=== PATIENT | male | born 1960 | race Caucasian/White ===

== ENCOUNTER 2017-02-16 11:58 | Inpatient (IN) | payer OTHER ==
[~2017-02-16] VITALS: Ht 167.6 cm; Wt 83.2 kg
[~2017-02-16 11:58] MED LIST: ABILIFY 10 MG10 MG PO; ABILIFY 5MG5 MG PO; ATORVASTATIN CA10 M1 PO; CELEXA40 MG PO; EFFEXOR-XR150 MG PO; EFFEXOR-XR75 MG PO; FLU VACCINE 0.0.5 ML IM; HARVONI1 TAB PO; LEXAPRO 20MG M20 MG PO; LITHIUM CARBON300 M3 PO; LITHIUM CARBON300 M6 PO; LITHIUM CARBON450 M1 PO; LITHIUM CARBON600 MG PO; MIRTAZAPINE15 M2 PO; MULTIPLE VITAM1 EAC2 PO; NEURONTIN300 MG PO; OLANZAPINE PO; OLANZAPINE10 M1 PO; OLANZAPINE2.5 MG PO; OLANZAPINE5 MG PO; SIMVASTATIN20 MG PO; TEGRETOL200 M1 PO; TRAZODONE HCL100 MG PO; TRAZODONE HCL150 M1 PO; TRAZODONE150 MG PO; VENLAFAXINE HC150 MG PO; VENLAFAXINE HCL75 M1 PO; VENLAFAXINE225 MG PO; [UNRECOGNIZED DRUG - OTHER] PO
--- NOTE | 2017-02-16 12:12 | NUR ---
PT HAS ONE (1) BELONGINGS BAG LOCKED IN CLOSET AND (1) ONE VALUABLES BAG GIVEN TO POD 2 NURSE
--- NOTE | 2017-02-16 12:21 | NUR ---
56 YO MALE BIBA FROM [facility] WITH INCREASED SI. STATES ONGOING DEPRESSION X 8 YEARS WITH BOUTS OF SI. PER PT THERE HAS BEEN NO RECENT EXACERBATING FACTOR LEADING TO THIS EVENT. STATES HE FEELS THOUGH "MEDS STOP WORKING". DENIES ACTIVE PLAN, HOWEVER STATES HE KNOWS HE WOULD HANG HIMSELF WHEN AT HIS WORST. PT CHANGED INTO BLUE SCRUBS, VS TAKEN, SECURITY CALLED AND PT WANDED PER PROTOCOL, BELONGINGS DOCUMENTED.
--- NOTE | 2017-02-16 12:24 | ED PSY CRISIS COLLATERAL NOTE ---
Collateral Note Collateral Note Family/Inform/Naz Contacts: Pt's out pt prescriber Camilla JOVITA called to inform that pt was sent to the ED due to severe Depression with SI and plan to hang himself. Pt has prior suicide attempts and inpt psych tx. Today was his first day at [facility]. He was referred to [facility] by his outpt therapist Mirtha Carrillo. Camilla informed that pt was not able to identify any protective factors. He has 2 brothers that completed suicide. A friend of his recently . Pt has also been down on himself because he feels too out of shape to work. He used to be a very hard worker and has been out of work for 2 years. Camilla is very worried for pt's safety and recommends inpt psych tx.
--- NOTE | 2017-02-16 14:44 | NUR ---
DR GALLARDO WITH PATIENT
[2017-02-16 15:06] LABS: ABSOLUTE BASOPHIL COUNT 0.1 /CUMM (0.0-0.2); ABSOLUTE EOSINOPHIL COUNT 0.2 /CUMM (0.0-0.7); ABSOLUTE GRANULOCYTE CT 7.5 /CUMM (1.4-6.5); ABSOLUTE LYMPH COUNT 2.9 /CUMM (1.2-3.4); ABSOLUTE MONOCYTE COUNT 0.5 /CUMM (0.10-0.60); BASOPHIL % 0.9 % (0.0-2.0); HEMATOCRIT 50.5 % (42-52); MEAN CORPUSCULAR HGB 31.3 PG (27.0-31.0); MEAN CORPUSCULAR HGB CONC 33.4 G/DL (33.0-37.0); MEAN CORPUSCULAR VOLUME 93.8 FL (80.0-94.0); MEAN PLATELET VOLUME 7.4 FL (7.4-10.4); PLATELET COUNT 290 /CUMM (130-400); RBC DISTRIBUTION WIDTH 13.8 % (11.5-14.5); RED BLOOD CELL CT 5.38 /CUMM (4.70-6.10); WHITE BLOOD CELL COUNT 11.2 /CUMM (4.8-10.8)
--- NOTE | 2017-02-16 15:10 | ED PSYCHIATRIC COMPLAINT ---
History of Present Illness General Chief Complaint: Psychiatric Related Complaint Stated Complaint: SENT BY [facility] FOR SI Source: patient, old records Exam Limitations: no limitations Allergies Coded Allergies: NO KNOWN ALLERGIES (05/15/15) Reconcile Medications Atorvastatin Calcium 10 MG TABLET 1 TAB PO QPM CHOLESTEROL (Reported) Bupropion HCl (Wellbutrin XL) 150 MG TAB.ER.24H 150 MG PO DAILY DEPRESSION ( Reported) Carbamazepine (Tegretol) (Unknown Strength) TABLET (Unknown Dose) PO BID UNKNOWN (Reported) [place] Carbonate ([place] Carbonate ER) 300 MG TABLET.ER 2 TAB PO QPM MENTAL HEALTH (Reported) [place] Carbonate ([place] Carbonate ER) 450 MG TABLET.ER 1 TAB PO DAILY MENTAL HEALTH (Reported) Mirtazapine 15 MG TABLET 1 TAB PO QPM SLEEP (Reported) Multivitamin (Multiple Vitamins) 1 EACH TABLET 1 TAB PO DAILY VITAMIN SUPPORT (Reported) Olanzapine 10 MG TABLET 1 TAB PO QPM SLEEP (Reported) Trazodone HCl 150 MG TABLET 1 TAB PO QPM SLEEP (Reported) Venlafaxine HCl (Venlafaxine HCl ER) 150 MG CAP.ER.24H 1 CAP PO DAILY MENTAL HEALTH (Reported) Venlafaxine HCl (Venlafaxine HCl ER) 75 MG CAP.ER.24H 1 CAP PO QPM MENTAL HEALTH (Reported) Triage Note: 56 YO MALE BIBA FROM [facility] WITH INCREASED SI. STATES ONGOING DEPRESSION X 8 YEARS WITH BOUTS OF SI. PER PT THERE HAS BEEN NO RECENT EXACERBATING FACTOR LEADING TO THIS EVENT. STATES HE FEELS THOUGH "MEDS STOP WORKING". DENIES ACTIVE PLAN, HOWEVER STATES HE KNOWS HE WOULD HANG HIMSELF WHEN AT HIS WORST. PT CHANGED INTO BLUE SCRUBS, VS TAKEN, SECURITY CALLED AND PT WANDED PER PROTOCOL, BELONGINGS DOCUMENTED. Triage Nurses Notes Reviewed? yes HPI: Mr. Pringle was seen and examined this afternoon. He is resting comfortably in the bed. He was sent in this morning after stating that he continues to be extremely suicidal at his [facility] appointment this morning. The patient states that he feels hopeless and feels that medications are no longer effective. He states that multiple trials with various antipsychotics have proven to be ineffective and currently finds that his symptoms are uncontrollable. He states that he has previously been admitted to Inpatient Psychiatry and requested to be admitted again. He denies any fever, chills, nausea, vomiting. He endorses occasional shortness of breath and chest pain although is currently not expressing any chest pain at this moment. He does endorse good medication compliance, and took his medications this morning. (MICHAEL GALLARDO MD) Vital Signs & Intake/Output Vital Signs & Intake/Output Vital Signs Date Time Temp Pulse Resp B/P B/P Pulse O2 O2 Flow FiO2 Mean Ox Delivery Rate 02/17 0739 96.5 63 125/78 02/16 2145 96.3 69 138/78 02/16 2040 98.1 64 18 134/89 95 02/16 1921 98.2 60 136/94 94 02/16 1407 98.0 84 18 148/80 97 Room Air 02/16 1326 Room Air 02/16 1211 98.2 88 18 152/88 97 Room Air ED Intake and Output 02/17 0000 02/16 1200 Intake Total 480 Output Total Balance 480 Intake, Oral 480 Patient 83.234 kg Weight Weight Reported by Patient Measurement Method Past History Travel History Traveled to [place] past 21 day No Medical History Any Pertinent Medical History? 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 Yes (LEONILA JACOBO MD) Review of Systems Review of Systems Constitutional: Reports: see HPI. (MICHAEL GALLARDO MD) Review of Systems Constitutional: Reports: no symptoms. EENTM: Reports: no symptoms. Respiratory: Reports: no symptoms. Cardiovascular: Reports: no symptoms. GI: Reports: no symptoms. Genitourinary: Reports: no symptoms. Musculoskeletal: Reports: no symptoms. Skin: Reports: no symptoms. Neurological/Psychological: Reports: see HPI, confusion, depressed. Hematologic/Endocrine: Reports: no symptoms. Immunologic/Allergic: Reports: no symptoms. All Other Systems: Reviewed and Negative (LEONILA JACOBO MD) Physical Exam Physical Exam General Appearance: well developed/nourished, no apparent distress, alert, awake , comfortable Neck: normal inspection, supple Respiratory: normal breath sounds, chest non-tender Cardiovascular: regular rate/rhythm Gastrointestinal: normal bowel sounds, soft, non-tender Neurological/Psychiatric: no motor/sensory deficits, awake, oriented x 3, Appears Withdrawn. Appearance/Memory/Insight: appropriate appearance, appropriate insight Behavoir/Eye Contact/Speech: cooperative, good eye contact SAD PERSONS SAD PERSONS Response Value Male Sex? yes 1 Age <19 or >45 years? yes 1 Depression/Hopelessness? yes 2 Previous Attempts/Psych Care yes 1 Single//? yes 1 Social Support? has support 0 Stated Future Intent? yes 2 Total 8 (PAULINA QUINTERO,[facility]) Physical Exam General Appearance: well developed/nourished, mild distress Head: atraumatic Eyes: Bilateral: PERRL, EOMI. Ears, Nose, Throat: normal pharynx, normal ENT inspection, hearing grossly normal Neck: normal inspection, supple Respiratory: normal breath sounds Cardiovascular: regular rate/rhythm Gastrointestinal: soft, non-tender Extremities: normal range of motion Thoughts/Hallucinations: no apparent hallucination Skin: intact, normal color, warm/dry SAD PERSONS Done? yes (LEONILA JACOBO MD) Progress Differential Diagnosis: drug intoxication, drug overdose, drug withdrawal, electrolyte abnormality, hypoglycemia Plan of Care: Orders Procedure Date/time Status Regular Diet 02/17 B Active Vital Signs 02/16 2149 Active Inpt Psych Teach/Educate 02/16 2149 Active Nutritional Intake, Monitor 02/16 2149 Active Inpt Psych Auricular Acupunctu 02/16 2149 Active EKG 02/16 1925 Active Lab Add-on Test 02/16 192 Active Patient Data - inpatient psych 02/16 1916 Active Admit to inpatient psych 02/16 1916 Active Add-on Test (ER Only) 02/16 1719 Active Add-on Test (ER Only) 02/16 1707 Active Add-on Test (ER Only) 02/16 1700 Active URINE DRUGS OF ABUSE 02/16 1512 Complete ED CRISIS PSYCH CONSULT 02/16 1505 Active TSH REFLEX 02/16 1501 Complete LITHIUM 02/16 1501 Complete ETHANOL 02/16 1501 Complete URINALYSIS 02/16 1450 Complete COMPREHENSIVE METABOLIC PANEL 02/16 1450 Complete CBC WITHOUT DIFFERENTIAL 02/16 1450 Complete Intake & Output 02/16 1400 Complete Vital Signs 02/16 UNK Active Nursing Misc 02/16 UNK Active Alternative Nursing Therapy 02/16 UNK Active Activity/Ambulation 02/16 UNK Active Current Medications Sig/Ester Start time Last Medication Dose Stop Time Status Admin [place] Carbonate 600 MG DAILY@02/17 2000 AC (Lithobid Slow Release) Atorvastatin Calcium 10 MG 1700 02/17 1700 AC (Lipitor) Multivitamins 1 TAB DAILY 02/17 1000 AC (Theragran Vitamins) Bupropion HCl 150 MG 0802/17 0800 AC (Wellbutrin XL) [place] Carbonate 450 MG DAILY@0802/17 0800 AC (Eskalith Cr) Venlafaxine HCl 150 MG 02/17 0800 AC (Effexor Xr) Fish Oil 1,050 MG BID 02/16 2200 AC 02/16 ([place]-3) 232 Olanzapine 10 MG AT BEDTIME 02/16 2200 AC 02/16 (Zyprexa) 232 Trazodone HCl 150 MG AT BEDTIME 02/16 2200 AC 02/16 (Desyrel) 232 Venlafaxine HCl 75 MG AT BEDTIME 02/16 2200 AC 02/16 (Effexor Xr) 232 Acetaminophen 650 MG Q6P PRN 02/16 1930 AC (Tylenol) Al Hydroxide/Mg 30 ML Q4-6 PRN PRN 02/16 1930 AC Hydroxide (Maalox Plus) Gabapentin 300 MG Q4P PRN 02/16 1930 AC (Neurontin) Magnesium Hydroxide 30 ML AT BEDTIME PRN 02/16 1930 AC (Milk Of Magnesia) Trazodone HCl 50 MG AT BEDTIME NEED.. 02/16 1930 CAN (Desyrel) Laboratory Tests 02/16/17 1512: Urine Opiates Screen < 100.00, Methadone Screen 42, Barbiturate Screen < 60, Ur Phencyclidine Scrn < 6.00, Amphetamines Screen 182, U Benzodiazepines Scrn < 85, Urine Cocaine Screen < 50, Urine Cannabis Screen > 80.00 H 02/16/17 1511: Urine Color Cancelled, Urine Clarity Cancelled, Urine pH Cancelled, Ur Specific [place] Cancelled, Urine Protein Cancelled, Urine Ketones Cancelled, Urine Nitrite Cancelled, Urine Bilirubin Cancelled, Urine Urobilinogen Cancelled, Ur Leukocyte Esterase Cancelled, Ur Microscopic Cancelled, Urine Hemoglobin Cancelled, Urine Glucose Cancelled 02/16/17 1511: Serum Alcohol Cancelled, Urine Color YEL, Urine Clarity CLEAR, Urine pH 6.0, Ur Specific [place] 1.015, Urine Protein 30 H, Urine Ketones NEG, Urine Nitrite NEG, Urine Bilirubin NEG, Urine Urobilinogen 0.2, Ur Leukocyte Esterase NEG, Ur Microscopic SEDIMENT EXAMINED, Urine WBC 1-3 H, Ur Epithelial Cells FEW, Urine Mucus FEW, Urine Hemoglobin NEG, Urine Glucose NEG 02/16/17 1501: Anion Gap 14, Estimated GFR > 60, BUN/Creatinine Ratio 9.0, Glucose 92, Calcium 10.0, Total Bilirubin 0.9, AST 18, ALT 30, Alkaline Phosphatase 102, Total Protein 8.3 H, Albumin 4.9, Globulin 3.4, Albumin/Globulin Ratio 1.4, TSH &T3 & Free T4 Intrp 1.810, CBC w Diff NO MAN DIFF REQ, RBC 5.38, MCV 93.8, MCH 31.3 H , RDW 13.8, MPV 7.4, Gran % 67.0, Lymphocytes % 25.5, Monocytes % 4.6, Eosinophils % 2.0, Basophils % 0.9, Absolute Granulocytes 7.5 H, Absolute Lymphocytes 2.9, Absolute Monocytes 0.5, Absolute Eosinophils 0.2, Absolute Basophils 0.1, PUBS MCHC 33.4, [place] 1.2, Serum Alcohol < 10.0 Departure Departure Condition: Stable Referrals: ROBERT MYLES MD (PCP/Family) Departure Forms: Customer Survey General Discharge Information (PAULINA QUINTERO,MICHAEL) Departure Time of Disposition: 1899 Disposition: STILL A PATIENT Clinical Impression Primary Impression: Depression with suicidal ideation Secondary Impressions: Suicidal intent Resident Co-Sign Statement Statement: ED Attending supervision documentation- x I saw and evaluated the patient. I have also reviewed all the pertinent lab results and diagnostic results. I agree with the findings and the plan of care as documented in the Resident's documentation. I have reviewed the ED Record and agree with the Resident's documentation. [] Additions or exceptions (if any) to the Resident's note and plan are summarized below: [] (ODALIS QUINTERO,LEONILA)
--- NOTE | 2017-02-16 17:17 | NUR ---
PT SEEN IN [place]. VERBALIZED UNHAPPINESS THAT "NO ACTION" HAS HAPPENED. WANTS TO SIGN HIMSELF OUT. DR FISHER INFORMED.
--- NOTE | 2017-02-16 18:33 | ED PSYCH CRISIS CONSULTATION ---
Crisis Consult Basic Assessment Date of Consult: 02/16/17 Responsible Person/Accompanied By: self/biba Insurance Authorization: Insurance #1: Insurance name: LOUIE BIRD Phone number: Policy number: [id number] Group number: Authorization number: ED Provider: Patient's ED Provider: MICHAEL GALLARDO MD Primary Care Physician: Patient's PCP: SHAR QUINTERO,ROBERT PCP's Current Psychiatrist: jaimee powell APRN Chief Complaint: Psychiatric Related Complaint Patient's Quote: I'm battling for my life Present Illness: Pt is a 56 yo male biba from [facility] after making suicidal statement. Pt has a diagnosis of Major Depression and stated today that he has a plan to hang himself. Pt has been inpatient at [place] [address] since 2013 for positive SI and has been consistently involved with [facility] since 2013. Pt has a long hx of ETOH abuse and reports maintaining sobriety past 2+ yrs. Pt reports 2 brothers have committed suicide and he is worried his mother can't handle another son killing himself. Pt reports hopelessness that medications aren't helping and he is more depressed and easily agitated. Pt appears depressed, somewhat agitated, alert and OX3. Pt wnats to be admitted in order for medications to be re-evaluated. Patient's Address: [address] [place] [address] Other Phone Number: Who Do You Live With? Family (son and his family) Family/Informants Interviewed: [facility] clinician provided collateral. See note Allergies - Coded Allergies: NO KNOWN ALLERGIES (05/15/15) Current Medications - Scheduled Medications Atorvastatin Calcium 10 MG TABLET 1 TAB PO QPM CHOLESTEROL #30 (Reported) Entered as Reported by ZACK DESAI on 09/02/16 1239 Carbamazepine (Tegretol) (Unknown Strength) TABLET (Unknown Dose) PO BID UNKNOWN (Reported) Entered as Reported by ARIANA BUTLER on 11/02/15 1707 [place] Carbonate ([place] Carbonate ER) 300 MG TABLET.ER 2 TAB PO QPM MENTAL HEALTH #60 (Reported) Entered as Reported by ZACK DESAI on 09/02/16 1237 [place] Carbonate ([place] Carbonate ER) 450 MG TABLET.ER 1 TAB PO DAILY MENTAL HEALTH #30 (Reported) Entered as Reported by ZACK DESAI on 09/02/16 1237 Mirtazapine 15 MG TABLET 1 TAB PO QPM SLEEP #30 (Reported) Entered as Reported by ZACK DESAI on 09/02/16 1236 Multivitamin (Multiple Vitamins) 1 EACH TABLET 1 TAB PO DAILY VITAMIN SUPPORT (Reported) Entered as Reported by ARIANA BUTLER on 08/01/14 1743 Olanzapine 10 MG TABLET 1 TAB PO QPM SLEEP #30 (Reported) Entered as Reported by ZACK DESAI on 09/02/16 1236 Trazodone HCl 150 MG TABLET 1 TAB PO QPM SLEEP (Reported) Entered as Reported by ARIANA BUTLER on 01/28/15 1739 Venlafaxine HCl (Venlafaxine HCl ER) 150 MG CAP.ER.24H 1 CAP PO DAILY MENTAL HEALTH #30 (Reported) Entered as Reported by ZACK DESAI on 09/02/16 1238 Venlafaxine HCl (Venlafaxine HCl ER) 75 MG CAP.ER.24H 1 CAP PO QPM MENTAL HEALTH #30 (Reported) Entered as Reported by ZACK DESAI on 09/02/16 1238 Laboratory Results: Laboratory Tests 02/16/17 1512: Urine Opiates Screen < 100.00, Methadone Screen 42, Barbiturate Screen < 60, Ur Phencyclidine Scrn < 6.00, Amphetamines Screen 182, U Benzodiazepines Scrn < 85, Urine Cocaine Screen < 50, Urine Cannabis Screen > 80.00 H 02/16/17 1511: Serum Alcohol Cancelled, Urine Color YEL, Urine Clarity CLEAR, Urine pH 6.0, Ur Specific [place] 1.015, Urine Protein 30 H, Urine Ketones NEG, Urine Nitrite NEG, Urine Bilirubin NEG, Urine Urobilinogen 0.2, Ur Leukocyte Esterase NEG, Ur Microscopic SEDIMENT EXAMINED, Urine WBC 1-3 H, Ur Epithelial Cells FEW, Urine Mucus FEW, Urine Hemoglobin NEG, Urine Glucose NEG 02/16/17 1501: Anion Gap 14, Estimated GFR > 60, BUN/Creatinine Ratio 9.0, Glucose 92, Calcium 10.0, Total Bilirubin 0.9, AST 18, ALT 30, Alkaline Phosphatase 102, Total Protein 8.3 H, Albumin 4.9, Globulin 3.4, Albumin/Globulin Ratio 1.4, CBC w Diff NO MAN DIFF REQ, RBC 5.38, MCV 93.8, MCH 31.3 H, RDW 13.8, MPV 7.4, Gran % 67.0, Lymphocytes % 25.5, Monocytes % 4.6, Eosinophils % 2.0, Basophils % 0.9, Absolute Granulocytes 7.5 H, Absolute Lymphocytes 2.9, Absolute Monocytes 0.5, Absolute Eosinophils 0.2, Absolute Basophils 0.1, PUBS MCHC 33.4, Serum Alcohol < 10.0 Past History Past Medical History Neurological: NONE EENT: NONE Cardiovascular: hypertension, hyperlipidemia Respiratory: COPD Gastrointestinal: GERD Hepatic: hepatitis C Renal: NONE Musculoskeletal: NONE Psychiatric: anxiety, depression, insomnia Endocrine: NONE Blood Disorders: NONE Cancer(s): NONE 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 Pt is connected to treatment at this time. Pt has a supportive family. He has maintained sobriety past 2.5 yrs Physical Limitations (Interventions): None identified. Psychiatric Treatment History Psych Treatment Psychiatric Treatment Yes Inpatient Treatment Yes Outpatient Treatment Yes Location of Treatment [facility]; IOP and OP Reason for Treatment +SI Dates of Treatment [facility] X[facility] since 2013 (last Nov 2015) [place] OP/IOP current since 2013 Response to Treatment Major depression/+SI Diagnosis by History: Major Depression, PTSD alcohol abuse cannabis abuse Substance Use/Abuse History Drug Use/Abuse 1 Substances Used/Abused Yes Substance Used/Abused Alcohol Last Used 2.5 yrs ago Drug Use/Abuse 2 Substances Used/Abused Yes Substance Used/Abused Marijuana How often occasional Substance Abuse Treatment Substance Abuse Treatment Past Substance Abuse TX Yes Inpatient Treatment Yes Outpatient Treatment Yes Location of Treatment [facility] 30 yrs ago Reason for Treatment etoh abuse Comments: pt reports no etoh use past 2+ yrs. he admits to occasional cannabis use. Current Mental Status Mental Status Orientation: Person, Place, Situation Affect: Angry, Depressed, Hopeless Speech: WNL Neuro-vegetative: Anhedonia, Appetite Decreased, Energy Decreased, Helpless, Loss of Interest, Sleep Disturbance Appearance Appearance- Dress/Hygiene: hospital scrubs; crew cut; initially irritable but more relaxed once needs were being addressed. Sitting up at end of bed. appears depressed. Behaviors Thought Process: WNL Thought Content: WNL Memory: WNL Insight: Fair SI/HI Risk Assessment Past Suicidal Ideation/Attempts Yes Current Suicidal Ideation/Att Yes Past Homicidal Ideation/Att: No Current Homicidal Ideation/Attempts No (easily agitated by others) Degree of Intent: Plan, States Intent Danger To: Self Risk Factors: high anxiety/distress, history of suicide atmpts, SA/MH hospitalized, substance abuse, male Lethality Ratin PTSD Checklist PTSD Done? patient declined ED Management Sitter: Yes Restraints: No DSM5/PS Stressors/Medical Prob Diagnosis' (DSM 5, Stressors, Medical): Major Depressive D/O recurrent severe (F32.2) Cannabis Use D/O moderate (F12.20) 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 States he's been compliant with therapy, medications, abstaining from etoh and going to AA past 2 yrs and he is feeling more depressed. Departure Disposition Psych Medical Clearance Date: 02/16/17 Medically Cleared at: 1830 Time Started: 1834 Time Ended: 1914 Psychiatrist Consulted: Jesus Alvarez MD Disposition Established: 02/16/17 Time Disposition Established: 1919 Plan for Disposition - Modality: Inpatient Psychiatry Facility: [facility] Rationale for Disposition: Pt meets criteria for inpatient admission. Positve SI with plan to hang himself Type of IP Admission: Voluntary Referrals ROBERT MYLES MD (PCP/Family)
[2017-02-16 19:40] LABS: LITHIUM 1.2 mmol/L (0.6-1.2)
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
--- NOTE | 2017-02-16 21:09 | NUR ---
REPORT TO ROSEMARY VAZQUEZ IN [facility]
[2017-02-16 21:45] VITALS: BP 138/78
[2017-02-16] MEDS ORDERED: WELLBUTRIN XL150 M2 PO (22:24)
--- NOTE | 2017-02-16 23:36 | NUR ---
PT ADMITTED TO [facility] FOR EXACERBATION IN DEPRESSION WITH SI. PT REPORTS PASSIVE SI. HE DENIED PLAN OR INTENT. HE AGREED TO TELL STAFF IF ACTIVE SI OCCURS. DEPRESSION "9.9" ON SCALE OF 1-10 WITH 10 BEING THE WORST AND ANXIETY "4." PT DENIED HI AND ALL HALLUCINATIONS. THOUGHT PROCESS CLEAR AND LOGICAL. PT REPORED BEING CLEAN FROM "HARD DRUGS" FOR OVER 20 YEARS. HE ALSO REPORTED BEING SOBER FROM ALCOHOL 2.5 YEARS. HE ADMITTED TO SMOKING MARIJUANA 3 DAYS AGO BUT SAID SMOKING MARIJUANA IS INFREQUENT. AFFECT CONSTRICTED. BEHAVIOR PLEASANT AND COOPERATIVE. NO SOMATIC C/O. MEDICAL HX INCLUDES COPD (NO TX)/CIGARETTE SMOKER, HEP C, HTN, HYPERLIPIDEMIA.
[2017-02-17 07:39] VITALS: BP 125/78
--- NOTE | 2017-02-17 08:46 | SOCIAL WORKER PROG NOTE PSYCH ---
Social Work Progress Note Progress Note Mt with Mike today/ He reports being very depressed, doesn't know if he can go on like this - "I wouldn't wish this depression on anyone." Mike stated he is living with his 36yo son, Mike [id number] and his 2-1/2yo grandson , BETO Mckeon. Mike smiled and lit up when he spoke about his grandson. He stated he wakes up every day to his grandson. He is planning to move (with his son and his family) to somewhere else. "We are going to stay together." Mike stated stressors, are difficulty finding a job, has no license yet - "motor vehicle is giving me a hard time." He has another DMV driving test sometime in March. Mike stated coni has negative thoughts running through his head - he can' t stop it. He is willing to have a meeting with his son, Mike - needs to get his phone number. He doesn't want his sister, Ingrid involved. He is leading an AA meeting 1x per week, has remained sober from alcohol. Positive for cannibis.
--- NOTE | 2017-02-17 12:12 | History & Physical ---
General Information and HPI MD Statement: I have seen and personally examined JUSTIN STARR and documented this H&P. The patient is a 56 year old M who presented with a patient stated chief complaint of Sent by IOP or suicidal ideations]. Source of Information: patient, old records Exam Limitations: no limitations History of Present Illness: 56-year-old white male ongoing depression for at least 8 years several admissions to the hospital bouts of suicidal ideations. Patient thinks his medications are not working denies any problems to aggravate her depression but he feels hopeless. He hasn't had any alcohol for the last 2 years. He wants to be admitted to assess the medications and try to feel better. Allergies/Medications Allergies: Coded Allergies: NO KNOWN ALLERGIES (05/15/15) Home Med list Atorvastatin Calcium 10 MG TABLET 1 TAB PO QPM CHOLESTEROL (Reported) Bupropion HCl (Wellbutrin XL) 150 MG TAB.ER.24H 150 MG PO DAILY DEPRESSION ( Reported) Carbamazepine (Tegretol) (Unknown Strength) TABLET (Unknown Dose) PO BID UNKNOWN (Reported) [place] Carbonate ([place] Carbonate ER) 300 MG TABLET.ER 2 TAB PO QPM MENTAL HEALTH (Reported) [place] Carbonate ([place] Carbonate ER) 450 MG TABLET.ER 1 TAB PO DAILY MENTAL HEALTH (Reported) Mirtazapine 15 MG TABLET 1 TAB PO QPM SLEEP (Reported) Multivitamin (Multiple Vitamins) 1 EACH TABLET 1 TAB PO DAILY VITAMIN SUPPORT (Reported) Olanzapine 10 MG TABLET 1 TAB PO QPM SLEEP (Reported) Trazodone HCl 150 MG TABLET 1 TAB PO QPM SLEEP (Reported) Venlafaxine HCl (Venlafaxine HCl ER) 150 MG CAP.ER.24H 1 CAP PO DAILY MENTAL HEALTH (Reported) Venlafaxine HCl (Venlafaxine HCl ER) 75 MG CAP.ER.24H 1 CAP PO QPM MENTAL HEALTH (Reported) Compliance With Home Meds: GOOD Past History Travel History Traveled to [place] past 21 day No Medical History Neurological: NONE EENT: NONE Cardiovascular: hypertension, hyperlipidemia Respiratory: COPD Gastrointestinal: GERD Hepatic: hepatitis C, (RESOLVED WITH MED) Renal: NONE Musculoskeletal: NONE Psychiatric: alcohol dependence, anxiety, depression, insomnia, substance abuse, SOBER 2.5 YRS MARIJUANA ONLY AT PRESENT Endocrine: NONE Blood Disorders: NONE Cancer(s): NONE DIRECTOR POWER/Reproductive: NONE History of MRSA: No History of VRE: No History of CDIFF: No Isolation History: Standard Influenza Vaccine: 08/01/16 Surgical History Surgical History: non-contributory Past Family/Social History Psychosocial History Where do you live? Home Who Do You Live With? self Primary Language: Omani ETOH Use: denies use Illicit Drug Use: marijuana Living Will? unknown Functional Ability ADLs Independent: dressing, eating, toileting, bathing. Ambulation: independent IADLs Independent: shopping, housework, finances, food prep, telephone, transportation , medication admin. Review of Systems Review of Systems Constitutional: Reports: see HPI. Exam & Diagnostic Data Last 24 Hrs of Vital Signs/I&O Vital Signs Date Time Temp Pulse Resp B/P B/P Pulse O2 O2 Flow FiO2 Mean Ox Delivery Rate 02/17 0739 96.5 63 125/78 02/16 2145 96.3 69 138/78 02/16 2040 98.1 64 18 134/89 95 02/16 1921 98.2 60 136/94 94 02/16 1407 98.0 84 18 148/80 97 Room Air 02/16 1326 Room Air 02/16 1211 98.2 88 18 152/88 97 Room Air Intake & Output 02/17 1600 02/17 0800 02/17 0000 Intake Total 240 Output Total Balance 240 Intake, Oral 240 Patient 183 lb Weight Physical Exam General Appearance Alert, Oriented X3, Cooperative, No Acute Distress Skin No Rashes, No Breakdown HEENT PERRLA, EOMI, Mucous Membr. moist/pink Neck Supple, No JVD, No thryomegaly, +2 Carotid Pulse wo Bruit, No LAD Lymphatic Axillary nl, Cervical nl Cardiovascular Regular Rate, No Murmurs Lungs decreased breath sounds Abdomen Normal Bowel Sounds, Soft, No Tenderness, No Hepatospenomegaly Neurological Exam Findings: Normal Gait, Normal Speech, Strength at 5/5 X4 Ext, Normal Tone, Sensation Intact, Cranial Nerves 3-12 NL, Reflexes 2+ Cranial Nerves II through XII: Intact Extremities No Cyanosis, No Edema, Normal Pulses, No Tenderness/Swelling Vascular Normal Pulses, Pulses Symmetrical Last 24 Hrs of Labs/Karel: Laboratory Tests 02/16/17 1512: Urine Opiates Screen < 100.00, Methadone Screen 42, Barbiturate Screen < 60, Ur Phencyclidine Scrn < 6.00, Amphetamines Screen 182, U Benzodiazepines Scrn < 85, Urine Cocaine Screen < 50, Urine Cannabis Screen > 80.00 H 02/16/17 1511: Urine Color Cancelled, Urine Clarity Cancelled, Urine pH Cancelled, Ur Specific [place] Cancelled, Urine Protein Cancelled, Urine Ketones Cancelled, Urine Nitrite Cancelled, Urine Bilirubin Cancelled, Urine Urobilinogen Cancelled, Ur Leukocyte Esterase Cancelled, Ur Microscopic Cancelled, Urine Hemoglobin Cancelled, Urine Glucose Cancelled 02/16/17 1511: Serum Alcohol Cancelled, Urine Color YEL, Urine Clarity CLEAR, Urine pH 6.0, Ur Specific [place] 1.015, Urine Protein 30 H, Urine Ketones NEG, Urine Nitrite NEG, Urine Bilirubin NEG, Urine Urobilinogen 0.2, Ur Leukocyte Esterase NEG, Ur Microscopic SEDIMENT EXAMINED, Urine WBC 1-3 H, Ur Epithelial Cells FEW, Urine Mucus FEW, Urine Hemoglobin NEG, Urine Glucose NEG 02/16/17 1501: Anion Gap 14, Estimated GFR > 60, BUN/Creatinine Ratio 9.0, Glucose 92, Calcium 10.0, Total Bilirubin 0.9, AST 18, ALT 30, Alkaline Phosphatase 102, Total Protein 8.3 H, Albumin 4.9, Globulin 3.4, Albumin/Globulin Ratio 1.4, TSH &T3 & Free T4 Intrp 1.810, CBC w Diff NO MAN DIFF REQ, RBC 5.38, MCV 93.8, MCH 31.3 H , RDW 13.8, MPV 7.4, Gran % 67.0, Lymphocytes % 25.5, Monocytes % 4.6, Eosinophils % 2.0, Basophils % 0.9, Absolute Granulocytes 7.5 H, Absolute Lymphocytes 2.9, Absolute Monocytes 0.5, Absolute Eosinophils 0.2, Absolute Basophils 0.1, PUBS MCHC 33.4, [place] 1.2, Serum Alcohol < 10.0 Diagnostic Data ITS Data Unobtainable at this time Assessment/Plan As Ranked By This Provider Problem List: 1. Depression with suicidal ideation 2. Suicidal ideations 3. Major depressive disorder Miscellaneous Miscellaneous Documentation Attending Case Discussed With: SYLVESTER QUINTERO,ROLAN Allison Primary Care Physician: SHAR QUINTERO,[facility] Patient sees these Specialists Psychiatry Level of Patient Care: [facility] Consults Needed: Consulting Specialty: Psychiatry Consulting Physician: Rolan Wu MD Reason for Consult: increased depression and suicidal ideation
[2017-02-17 12:32] VITALS: BP 139/80
--- NOTE | 2017-02-17 13:43 | NUR ---
PT IS VISIBLE ON UNIT, ATTENDING GROUPS AND RELAXING IN KITCHEN. PT HAS MINIMAL INTERACTION WITH PEERS AND SITS ALONE DURING FREE TIME. COOPERATIVE AND COMPLIANT WITH STAFF. AT 0800 VITAL SIGNS PT DISCLOSED +SI. PT REPORTS FEELING SAFE ON UNIT AND CONTRACTS FOR SAFETY. NO COMPLAINTS REPORTED. PT HAS A STABLE MOOD AND DEPRESSED/FLAT AFFECT.
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
[2017-02-17 16:22] VITALS: BP 137/75
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
[2017-02-17 19:47] VITALS: BP 128/80
--- NOTE | 2017-02-17 20:56 | NUR ---
PT IS CALM, COOPERATIVE WITH STAFF AND PEERS, AND COMPLIANT WITH UNIT RULES. PT IS BOTH IN AND OUT MILIEU. APPEARS LETHRGIC, SLEEPING IN PT ROOM AT TIMES. MOOD IS STABLE, AFFECT APPEARS FLAT/CONSTRICTED, COMMUNICATION IS ORGANZIED AND APPEARS NORMAL IN ALL RESPECTS, AND APPETITE IS NORMAL. PT DENIES SI AT THIS TIME.
[2017-02-18 07:53] VITALS: BP 131/78
--- NOTE | 2017-02-18 08:25 | NUR ---
CALL PLACED TO DR CASTRO TO REPORT PTS C/O REDNESS, SWELLING AND SORENESS TO L WRIST. DR CASTRO STATES TO ICE THE AREA AND MONITOR
--- NOTE | 2017-02-18 11:50 | NUR ---
PT ISLOATED IN HIS ROOM MOST OF THE MORNING. HE REPORTED HAVING SUICIDAL THOUGHTS BUT NO URGES TO ACT ON HIS THOUGHTS AND HE FEELS SAFE IN THE HSOPITAL.DR MCCARTNEY NOTIFIED. PT IS COMPLIANT WITH HIS MED REGIME.
[2017-02-18 12:26] VITALS: BP 130/77
--- NOTE | 2017-02-18 12:36 | CP SOUTH PROGRESS NOTE PSYCH ---
Psych (Inpt) Progress Note Progress Note Patients record reviewed, TAYLOR Tan gave verbal report Vitals and medication list reviewed. BP this AM was 130/77, pulse 59 with Temp 96.0 Sleep log indicated that patient slept well No new lab results today. I interviewed patient Diagnoses of Record: MDD recurrent severe without psychosis--hx suicide attempt (F33.2), PTSD (F43.10), Cannabis use disorder mild (F12.10), Alcohol use disorder severe in full sustained remission (F10.20), r/o bipolar Hep C eradicated, hypercholesterolemia, HTN, COPD 56 yo male admitted after he was brought to -ED from [facility] after making suicidal statement. Pt has a diagnosis of Major Depression and stated today that he has a plan to hang himself. Pt has been inpatient at [place] [id number] since 2013 for positive SI and has been consistently involved with [facility]/ [facility] since 2013. Pt has a long hx of ETOH abuse and reports maintaining sobriety past 2+ yrs. Pt reports 2 brothers have committed suicide and he is worried his mother can't handle another son killing himself. Mental Status Update Patient reported that he wishes he can just stop all medications and start a completely new medication. He feels he has been on current regimen long enough and does not seem to have michelle in his medications He was alert, oriented, and coherent. Still feeling hopeless and struggling with the thought of suicide (on-off) Denied hallucinations, denied paranoia, denied violent thoughts or homicidal ideation, thought process was coherent. PLAN: I reviewed his previous medication experiences, it seems that he was briefly on Remeron 15 mg while in [facility], it was not clear why it was stopped or whether he stopped it on his own, given that his Effexor was just increased , I reviewed the limited options we can combine with Effexor, we agreed on the following plan : Reduce Bupropion to 75 mg BID Start remeron 15 mg at bedtime Will follow up tomorrow
[2017-02-18 16:14] VITALS: BP 135/80
[2017-02-18 20:04] VITALS: BP 139/87
--- NOTE | 2017-02-18 20:40 | NUR ---
PT IS ISOLATIVE AND WITHDRAWN, SPENDING LONG PERIODS IN PT ROOM, OUT OF MILIEU. WHILE IN MILIEU, LIMITED INTERACTION WITH OTHERS. MOOD IS STABLE, AFFECT IS FLAT/CONSTRICTED, COMMUNICATION IS ORGANZIED AND APPEARS NORMAL IN ALL RESPECTS, AND APPETITE IS NORMAL. PT DENIES SI AT THIS TIME.
--- NOTE | 2017-02-19 04:58 | NUR ---
PT HAD PRN NEURONTIN 300 AND ZYPREXA 2.5 AT 2100 C AFFECT. PT SLEPT. PT AGREEING TO BE SAFE ON UNIT.
--- NOTE | 2017-02-19 05:00 | NUR ---
PT UP X 2. PT SLEPT IN LONG INTERVALS. PT UP AT 0240 FOR MAYA 10 PRN AND UP AT 0445 FOR ZYPREXA 2.5. PT UP FOR MORNING AT 0445.
[2017-02-19 07:44] VITALS: BP 131/71
[2017-02-19 12:20] VITALS: BP 132/77
--- NOTE | 2017-02-19 12:41 | CP SOUTH PROGRESS NOTE PSYCH ---
Psych (Inpt) Progress Note Progress Note BP this AM was 132/77, pulse 53/min, Temp 96.3 Sleep log indicated that patient had PRN Neurontin and PRN Zyprexa for anxiety at 2100 hours with good effects, slept No new lab results today. Ali Chukson level was 1.2 mmol/L on 02/16/2017, dose was reduced, will re-check level I interviewed patient Diagnoses of Record: MDD recurrent severe without psychosis--hx suicide attempt (F33.2), PTSD (F43.10), Cannabis use disorder mild (F12.10), Alcohol use disorder severe in full sustained remission (F10.20), r/o bipolar Hep C was eradicated, hypercholesterolemia HTN, COPD 56 year-old White male admitted after he was brought to -ED from [facility] after making suicidal statement. Pt has a diagnosis of Major Depression and stated a plan to hang self. Pt has been inpatient at [place] [id number] since 2013 for positive SI and has been consistently involved with [facility] since 2013. Pt has a long history of ETOH abuse and reports maintaining sobriety past 2+ yrs. Pt reports 2 brothers have committed suicide and he is worried his mother can't handle another son killing himself. Mental Status Update Patient showed constricted affect, tolerated Remeron/slept well, no AM excessive sedation He was alert, oriented, and coherent. Still feeling hopeless and struggling with the thought of suicide (on-off), he denied hallucinations, denied paranoia, denied violent thoughts or homicidal ideation, thought process was coherent. PLAN: Recheck lithium level, lytes, and UA tomorrow Will follow up with his regular team tomorrow
--- NOTE | 2017-02-19 12:57 | NUR ---
Patient is A&O x 3, compliant with medication and group therapies. Patient is present in the community but very reclusive with minimal interaction with other peers and staff members. Mood and affect are stable/ Euthymic, vital sign is stable and within the acceptable range, denies any physical discomfort/ pain, thought of self-harm and to someone else.
[2017-02-19 16:03] VITALS: BP 134/84
[2017-02-19 19:39] VITALS: BP 134/76
--- NOTE | 2017-02-19 19:51 | NUR ---
PT IS ISOLATIVE/WITHDRAWN, SPENDING THE MAJORITY OF THE TIME IN PT ROOM. WHILE IN MILIEU, PT IS BY SELF, NOT INTERACTING MUCH WITH OTHERS. MOOD IS STABLE, AFFECT IS FLAT/CONSTRICTED, COMMUNICATION IS ORGANIZED THOUGH SPARSE, BUT NORMAL IN ALL RESPECTS, AND APPETITE IS NORMAL. PT DENIES SI AT THIS TIME.
[2017-02-20 07:58] VITALS: BP 133/78
[2017-02-20 08:07] LABS: LITHIUM 0.9 mmol/L (0.6-1.2)
--- NOTE | 2017-02-20 11:57 | NUR ---
PT IS COMPLIANT AND COOPERATIVE WITH UNIT RULES. PT IS OUT IN THE COMMUNITY, MINIMAL INTERACTION WITH STAFF AND PEERS. PT REPORTED TO STAFF FEELINGS OF AGITATION TOWARDS ANOTHER PT. PT ENCOURGED TO STAY AWAY FROM OTHER PT. PT IS ATTENDING GROUPS. PT MOOD IS STABLE WITH A EUTHYMIC AFFECT. PT DENIES SI THOGUHTS.
[2017-02-20 12:28] VITALS: BP 131/76
--- NOTE | 2017-02-20 13:29 | SOCIAL WORKER PROG NOTE PSYCH ---
Social Work Progress Note Progress Note Patient seen individually to assess progresss and needs. Patient is very anxious to get discharged by the weekend so that he can participate in parades in [place] and [place]. He agreed that "in the past" this might have been a temtation for him to "have one" (beer); but knows that he can't do that. He does want to have the commeraderie since he missed it last year. Patient reports that his depression is improving, and that he is not suicidal today, although there were some reports of patient having suicidal ideation over the weekend. Patient has had 2 briothers commit suicide at different times, and added that his father seemed like he was probably depressed; but, looking back now feels he drank which was his way of dealing in those days. Patient had been in IOP, and he wants to return to that program, and then return to seeing Daja Carrillo and Camilla Jc for counseling and medication. Patient lives with grandson and his [id number], and indicated that he didn' t see his traits in his grandson's behavior, so he is hopeful that the cycle may be broken.. Patient was very pleasant and cooperative throughout session, and said he was looking forward to speaking with Dr Wu later today.
[2017-02-20 15:41] VITALS: BP 143/77
--- NOTE | 2017-02-20 15:57 | SOCIAL WORKER PROG NOTE PSYCH ---
Social Work Progress Note Progress Note [facility] called - TAYLOR Varela and stated she did not know Mike was inpatient. Wanted a call back Nichole . They provide 1x per week visits. Need to collaborate with visiting nurse.
--- NOTE | 2017-02-20 19:56 | NUR ---
PT HAS BEEN ISOLATIVE AND IN HIS ROOM FOR MOST OF THE SHIFT. WHEN NOT IN HIS ROOM HE SPENDS TIME ALONE IN THE KITCHEN READING OR WATCHING TV. HE HAS NOT SPOKEN TO STAFF FURTHER ABOUT HIS FRUSTRATION ON THE UNIT. PT DENIES ANY THOUGHTS OF SI AT THIS TIME.
--- NOTE | 2017-02-20 20:06 | CP SOUTH PROGRESS NOTE PSYCH ---
Psych (Inpt) Progress Note Progress Note Include the following elements, when applicable: Involvement in the active treatment of the patient with behavioral observations of the patient and the patient's response to the treatment. Review of the ongoing treatment process in the context of the treatment plan. Indication of how multi-disciplinary staff members are carrying out the treatment plan. Plans for future interventions and recommendations for revision of the treatment plan. Liaison with other physicians/providers. Progress Note: PSYCHIATRIST NOTE, 02/20/2027: I discussed this patient's progress to date, current mental status, treatment and discharge planning with staff team today in the daily morning ITTM and also met with him again myself in individual session. Patient had been quite irritable earlier in the day; it seems that this was very much contributed to by the behavior of another male patient on the milieu; patient is disgusted with the man's untidy behavior, not picking up after himself, leaving a mess everywhere, whereas patient is himself "always cleaning up the place;" the other man has also been very rude, crude when approached about his slovenly behavior. In any event, this patient has not been so irritated and genuinely angry and worked up over such behaviors during his previous [place], at least not to the current extent/degree and several staff members have noted this seeming change. I shared with patient that though the other patient's behavior was "not right [ and the other patient's behavior has been noted by staff],"we have nonetheless been surprized and somewhat alarmed at the intensity of his disgust and condemnation of this individual. We spoke for a while about symptoms of worsening/intensifying depression and my concern for him and improvement in his mood state; patient and I agreed to increase current dose of Zyprexa by 2.5mg a few times a day, as well as to increase dose of Wellbutrin back up from 150 to 200mg/day tomorrow AM and move all of the Effexor to suppertime so that the concentration of Wellbutrin and Effexor will not "peak" at the same time and in case the AM Effexor is making patient tired during the day. Serum [place] level this morning was 0.9mE q/L, stable in therapeutic range at current dose of 1, 050mg/day and well-tolerated.
[2017-02-20 20:08] VITALS: BP 144/85
--- NOTE | 2017-02-21 05:34 | NUR ---
PT ON PERIPHERY BUT VISIBLE ON EVENINGS. PT UP X 1. PT SLEPT.
[2017-02-21 07:35] VITALS: BP 133/78
--- NOTE | 2017-02-21 10:26 | SOCIAL WORKER PROG NOTE PSYCH ---
Social Work Progress Note Progress Note Met with patient individually this morning. Patient had somewhat anxious look on face, and stated that he was really having some trouble with racing thoughts. "Now I know what they mean when they ask me that question". Patient continues to be hopeful that he willbe ready for discharge by the weekend, as he wants to be able to associate with some friends and participate in parades. Patient admits that he is anxious, and agrees that a change in composition of the patient population here may enable him to settle down more. At present he is preoccupied with keeping kitchen clean and otherwise staying on his own. He is going to groups and has been cooperative. Patient had intake previously at [facility] and wants to go there, and is agreeable if he needs to do intake a 2nd time, if necessary
[2017-02-21 12:17] VITALS: BP 127/77
--- NOTE | 2017-02-21 14:27 | NUR ---
PT VISIBLE IN THE MILIEU THROUGHOUT THE DAY. HIS GOAL WAS TO FIND WAYS TO MANAGE HIS DEPRESSION. PT HAS BEEN GOING TO GROUPS THROUGHOUT THE DAY, WHEN NOT IN GROUPS PT HAS BEEN MOSTLY IN THE KITCHEN READING OR IN BED RESTING. PT HAS BEEN COMPLIANT WITH THE RULES OF THE UNIT, AND DENIES THOUGHTS TO HURT HIMSELF WHEN ASKED.
[2017-02-21 15:49] VITALS: BP 134/85
--- NOTE | 2017-02-21 18:05 | NUR ---
PT IS CALM, COOPERATIVE WITH STAFF AND PEERS, AND COMPLIANT WITH UNIT RULES. SPENDING LONG EPRIODS OF TIME IN MILIEU, THOUGH STAYING MOSTLY TO SELF, SLIIGHTLY ISOLATIVE AND WITHDRAWN. MOOD IS STABLE, AFFECT IS EUTHYMIC, COMMUNICATION IS ORGANIZED AND APPEARS NORMAL IN ALL RESPECTS, AND APPETITE IS NORMAL. PT DENIES SI AT THIS TIME.
[2017-02-21 19:52] VITALS: BP 136/78
--- NOTE | 2017-02-22 06:50 | CP SOUTH PROGRESS NOTE PSYCH ---
Psych (Inpt) Progress Note Progress Note Include the following elements, when applicable: Involvement in the active treatment of the patient with behavioral observations of the patient and the patient's response to the treatment. Review of the ongoing treatment process in the context of the treatment plan. Indication of how multi-disciplinary staff members are carrying out the treatment plan. Plans for future interventions and recommendations for revision of the treatment plan. Liaison with other physicians/providers. Progress Note: PSYCHIATRIST NOTE (for 02/21/2017): I discussed this patient's slow progress to date, current mental status, treatment and discharge planning with staff team on this date in the daily morning ITTM and also met with him again myself in individual session. Patient had felt more irritable and mildly agitated this morning and a PRN dose of Zyprexa did not help; I had a dose of Inderal (20mg) given to see if he might be experiencing akathisia but patient reported to me that this did not help. We had another discussion of mood stabilizing medications today; dose/serum concentration of [place] is optimal. Patient told me he had never been on a trial of Depakote in the past; following further description of R/B/SE patient agreed to begin a trial on Depakote augmentation of current regimen; he will receive a total of two 500mg doses today and increase to total of 1,500mg tomorrow, 02/22/2017, with valproic acid level for AM, 02/24/2017. I also plan to reduce current dose of Zyprexa slightly in order to reduce possible combined sedative effects and also to see if the Zyprexa is making much of a positive difference at dose up until now. Patient continues to be willing to continue with the plan to make a transition to OPS treatment with Camilla Ross APRN, through [facility] (which had been the plan [employer] before patient became acutely suicidal. Patient had received initial dose of Wellbutrin SR, 200mg, in the morning; this combined with the Effexor XR may have been overstimulating and contributed to his restless dysphoria this morning; I plan to reduce Wellbutrin dose by half, to 100mg in the morning, for the present.
[2017-02-22 07:41] VITALS: BP 129/79
--- NOTE | 2017-02-22 12:08 | SOCIAL WORKER PROG NOTE PSYCH ---
Social Work Progress Note Progress Note Discussed Asa with Dr. Wu today. Met wtih Mike, he was in his room sleeping around 12noon. He stated he was just resting. He reported no SI/HI, no psychosis, but appears very depressed, flat affect, irritable. HE reported having difficulty concentrating - has "alot of thoughts." He denied he had negative thoughts, and said his minds "was wandering." He is focused on discharging from the hospital by Monday, focused on tasks he has to do such as a driving test at [employer] on 02/28, and finding a job. These have been long standing issues (difficulty passing his driving test, and trouble finding work) both of which are connected. He is refusing to attend the IOP, even though he started the IOP and was referred to the ED for SI. Mike stated his appetite is good, states he has attended some groups today. He seemed agitated that it is likely he will need to stay the weekend, per Dr. Wu - he was upset about this - and said, I'm not staying... there is nothing going on this weekend (referring to CPS)." Reminded Patricio about how he started IOP and waould he consider returning for a while, he seemed focused on leaving and not able to engage in the discussion any further. His preference at this time to to return to his prescriber, PATY Bauman and [place] APRN. Will discuss further with Dr. Wu.
[2017-02-22 12:18] VITALS: BP 129/77
--- NOTE | 2017-02-22 13:34 | NUR ---
PT IS ISOLATIVE, WITHDRAWN & NOT ENGAGING FREQUENTLY WITH PEERS/STAFF. APPEARS TO BE DETACHED, ALTHOUGH MAKING AN EFFORT TO STAY OUT IN THE COMMUNITY AND ATTENDING GROUPS. PLEASANT AND FRIENDLY WHEN ENGAGING WITH STAFF. PT READ A BOOK ON DEPRESSION AND THANKED A STAFF MEMBER FOR ALLOWING HIM TO READ THIS, REPORTED "TAKING A FEW POINTERS AWAY". VS ARE STABLE AND DENIES ANY SI/HI TO THIS MHW.
--- NOTE | 2017-02-22 13:38 | CP SOUTH PROGRESS NOTE PSYCH ---
Psych (Inpt) Progress Note Progress Note Include the following elements, when applicable: Involvement in the active treatment of the patient with behavioral observations of the patient and the patient's response to the treatment. Review of the ongoing treatment process in the context of the treatment plan. Indication of how multi-disciplinary staff members are carrying out the treatment plan. Plans for future interventions and recommendations for revision of the treatment plan. Liaison with other physicians/providers. Progress Note: PSYCHIATRIST NOTE, 02/22/2017: I discussed this patient's progress to date, current mental status, treatment and discharge planning with staff team today in the daily morning ITTM and also met with him again myself in individual session. Whereas, he was not as demonstrably irritable/irritated in general as he had been yesterday, 2016, patient continued to be fairly sullen and fixated on discharge by the coming holiday weekend so he can participate in the color guard for two parades, one on 02/25/2017 and the second on 02/27/2017; he is very proud to have been asked to participate in these color guards again ("I missed last year being in hospital"--?at [place]) and the honor and the importance of these events to him are great; I spoke with patient frankly about the treatment teams concerns for/about him and his safety and welfare but also very much acknowledged the significant importance to him of the coming weekend's events; I told him that I had seen improvement in his irritability, dysphoria, negativity since yesterday, 02/21/2017, and that if this progress continued, and we could get him a start at [facility] by the end of the week ("re-intake" or initial program day) we would feel more comfortable with a discharge on 02/24/2017. Patient denied any side effects, sedation after initial doses of Depakote ER; he received 1,000mg yesterday, 02/21/2017, and plan is for increase to total of 1, 500mg/day today with initial valproic acid level to be drawn in AM 02/24/2017. Patient also agreed to my returning Zyprexa to previous higher dose with some given during the day, as well as at bedtime (total of 17.5mg/day, plus PRN's, as needed).
--- NOTE | 2017-02-22 14:06 | SOCIAL WORKER PROG NOTE PSYCH ---
Social Work Progress Note Progress Note AUTH pended Member Name Member ID Member Subscriber Name Subscriber ID JUSTIN STARR [id number] JUSTIN STARR [id number] Pended Authorization # Client Authorization # Type of Request [id number] CONCURRENT Date of Admission/ Start of Services Requested From Submission Date 02/16/2017 02/20/2017 02/22/2017
[2017-02-22 16:06] VITALS: BP 135/77
[2017-02-22 19:33] VITALS: BP 143/80
--- NOTE | 2017-02-22 22:49 | NUR ---
PT IS CALM, COOPERATIVE WITH STAFF AND PEERS, AND COMPLIANT WITH UNIT RULES. OFTEN IN MILIEU, THOUGH LIMITED INTERACTION WITH OTHERS. AT TIMES PT CAN EXPRESS SOME LEVEL OF IRRITABILITY. MOOD IS STABLE, AFFECT IS FLAT/CONSTRICTED, AND COMMUNICATION IS ORGANIZED AND APPEARS NORMAL IN ALL RESPECTS, AND APPETITE IS NORMAL. PT DENIES SI AT THIS TIME.
--- NOTE | 2017-02-23 07:16 | NUR ---
PT SOMEWHAT IRRITABLE, ISOLATED. PT SLEPT. PT C -SI.
[2017-02-23 07:44] VITALS: BP 132/76
--- NOTE | 2017-02-23 12:19 | NUR ---
PT IS IRRITABLE IN HIS MOOD. HE IS TAKING HIS MEDS AND GOING TO GROUPS. PT IS FOCUSED ON GETTING DISCHARGED BY MONDAY BUT HE EXPRESSES HIS DESIRE TO LEAVE IN AN ANGRY WAY AND AT ONE POINT PT STATED IF HE DID NOT LEAVE BY MONDAY HE WOULD REFUSE HIS MEDS. DR PHAN NOTIFIED AND WILL SPEAK WITH PT. PT DENIED SUICIDAL THOUGHTS WHEN ASKED
--- NOTE | 2017-02-23 12:20 | SOCIAL WORKER PROG NOTE PSYCH ---
Social Work Progress Note Progress Note Patient reiterated this morning about how much he wanted to be able to be discharged by Monday, so that he could see his friends and participate in [place] Day parades in [place] and [place].
[2017-02-23 12:28] VITALS: BP 128/92
--- NOTE | 2017-02-23 15:00 | SOCIAL WORKER PROG NOTE PSYCH ---
Social Work Progress Note Progress Note JUSTIN STARR [id number] 1960 JUSTIN STARR [id number] Pended Authorization # Client Authorization # Type of Request [id number] CONCURRENT Date of Admission/ Start of Services Requested From Submission Date 02/16/2017 02/23/2017 02/23/2017
--- NOTE | 2017-02-23 15:36 | SOCIAL WORKER PROG NOTE PSYCH ---
Social Work Progress Note Progress Note Met with patient in a.m. and again in p. m. to determine his readiness and resolve for discharge on 02-24-17, tomorrow. Patient stated on both times that he was very much looking forward to discharge and seeing old friends at [place] Day parades in [place] and in [place]. Many of the people in the parades are his friends and supports, and he values participation a great deal. Was very pleased with plan for intake scheduled at 12:45 at [facility], and start of program on Monday, February 28, since monday is a holiday. Patient is denying any current suicidal ideation. Depakote level to be obtained in a.m.
[2017-02-23 15:56] VITALS: BP 138/78
--- NOTE | 2017-02-23 19:02 | CP SOUTH PROGRESS NOTE PSYCH ---
Psych (Inpt) Progress Note Progress Note Include the following elements, when applicable: Involvement in the active treatment of the patient with behavioral observations of the patient and the patient's response to the treatment. Review of the ongoing treatment process in the context of the treatment plan. Indication of how multi-disciplinary staff members are carrying out the treatment plan. Plans for future interventions and recommendations for revision of the treatment plan. Liaison with other physicians/providers. Progress Note: PSYCHIATRIST NOTE, 02/23/2017: I discussed this patient's progress to date, current mental status, treatment and discharge planning with staff team today in the daily morning ITTM and also met with him again myself in individual session. Patient is tolerating upward titration of Depakote ER to 1,500mg/day well with initial valproic acid level to be drawn tomorrow, 02/24/2017. Since increase in Zyprexa during the day to 2.5mg 3x/day patient has not required any PRN Zyprexa. Patient is looking forward to intake at [facility] tomorrow, 02/24/2017, at 12:45pm with formal start date of 02/28/2017 at 10am; he spontaneously noted he was looking forward to seeing the [facility] workers compensation legal secretary, Estefania Macedo, as she has always been friendly and kind to him; he is also looking forward to seeing the other [facility] staff. Patient's irritability has ebbed, especially since his discharge for the end of this week has been confirmed. Patient continues to sleep well and is less critical of other patients and their habits.
[2017-02-23 19:41] VITALS: BP 135/77
--- NOTE | 2017-02-23 20:52 | NUR ---
PT IS CALM, COOPERATIVE WITH STAFF AND PEERS, AND COMPLIANT WITH UNIT RULES. PT IS OFTEN IN MILIEU, THOUGH IN PERIPHERY, WITH LIMITED INTERACTION WITH OTHERS. MOOD IS STABLE, AFFECT APPEARS FLAT/CONSTRICTED, COMMUNICATION IS ORGANIZED AND APPEARS NORMAL IN ALL RESPECTS, AND APPETITE IS NORMAL. PT DENIES SI AT THIS TIME.
--- NOTE | 2017-02-24 06:01 | NUR ---
PT NOT IRRITABLE, BUT CONTINUES TO ISOLATE. PT DENIES SI. PT SLEPT. PT WILL DC TO IOP AT 1315.
[2017-02-24 07:34] VITALS: BP 124/74
--- NOTE | 2017-02-24 08:45 | NUR ---
PT IS SCHEDULED FOR DISCHARGE TO [facility] TODAY. HE REPORTS AND DEMONSTRATES IMPROVEMENT IN MOOD AND ABILITY TO FUNCTION. HE DENIED ANY THOUGHTS OF SUICIDE OR SELF HARM AT THIS TIME. HE IS LOOKING FORWARD TO MARCHING IN THE [employer] PARADE THIS WEEKEND. PT VERBAILZES A GOOD UNDERSTANDING OF HIS MED REGIME AND AGREES TO FOLLOW UP WITH [facility] AND HAS INTAKE APPT TODAY. 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
--- NOTE | 2017-02-24 09:23 | SOCIAL WORKER PROG NOTE PSYCH ---
Social Work Progress Note Progress Note Spoke with patient this morning and mood was very good. He is looking forward to discharge, and to be able to get his uniform dry cleaned to get ready for marching in parades. He said, wuth a big smile on his face, that the rain would hold off until they are finished marching. He states he feels excited about being discharged and getting together with old friends. He also reported that he was planning to go back to work soon, and also plans to get another dog. Patient sounds genuinely upbeat, and ready for d/c. He is scheduled for an intake evaluation at [facility] at [place] today upon discharge at 12:45 p.m.
[2017-02-24] MEDS ORDERED: WELLBUTRIN SR100 M2 PO (10:26)
--- NOTE | 2017-02-24 11:01 | SOCIAL WORKER PROG NOTE PSYCH ---
Social Work Progress Note Progress Note Patient is making positive statements about being discharged and getting his clothes ready for parades over the weekend, and getting together with old friends. Patient states ready to leave in-patient, and will be having intake appointment at [facility] upon d/c today at12:45. Patient stated that he was planning on getting another dog. 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 Patient re-iterated that he would avoid any drinking situations. Patient exhibited a lightness and a more relaxed demeanor, apparently due to impending discharge, and said that he was confident about the parades being able to be completed as planned despite rainy forecast.. Patient very appropriate.
[2017-02-24] MEDS ORDERED: DIVALPROEX SOD500 M2 PO ×2 (11:04)
[2017-02-24] MEDS ORDERED: EFFEXOR XR150 M1 PO (11:06)
[2017-02-24] MEDS ORDERED: OLANZAPINE2.5 M1 PO (11:06)
--- NOTE | 2017-02-24 17:21 | CP SOUTH PROGRESS NOTE PSYCH ---
Psych (Inpt) Progress Note Progress Note Include the following elements, when applicable: Involvement in the active treatment of the patient with behavioral observations of the patient and the patient's response to the treatment. Review of the ongoing treatment process in the context of the treatment plan. Indication of how multi-disciplinary staff members are carrying out the treatment plan. Plans for future interventions and recommendations for revision of the treatment plan. Liaison with other physicians/providers. Progress Note: PSYCHIATRIST NOTE (DISCHARGE), 02/24/2017: I discussed this patient's progress to date, current mental status, treatment and discharge plans with staff team today in the daily morning ITTM and also met with him again myself in individual session prior to discharging him directly to intake at the [facility] for 12:45pm on day of discharge and to begin regular programming on 02/28/2017. Patient's recent irritablity has resolved and he was brighter in affect, smiling, happy to be going home today and future-oriented, very much looking forward to being part of the honor guard at two [employer] parades, the first tomorrow, 02/25/2017; and the second on itself, 02/27/2017; he reiterated to me today that he was going to say his good-byes to the other veterans "before they go to the bar after the ceremonies." He is confident in being able to do that and still have a good time at the events. Patient is tolerating titration in dose of Depakote ER to 1,500mg/day by 02/22/2017; though serum valproic acid level this morning was marginal at 45.2mcg/ml, he has only been on the current dose for two days; given that he weighs less than 180 pounds the current dose will likely be sufficient once he has been on the medication for a few more days; I would recommend repeating valproic acid level in 1-2 weeks at the [facility]. Patient is also very interested in returning to outpatient treatment with Camilla Ross APRN, once he completes treatment at the [facility]; he has also promised to completely avoid ANY use of Marijuana for the duration of programming at [facility]; his urine tox. screening had been positive twice prior to the current admission and back in 10/2016. He is tolerating [place] carbonate well at total daily dose of 1,050mg/day; serum [place] level was well within therapeutic range at 0.9mEq/L on 02/20/2017 and continues to be very well tolerated; one might say that patient has not avoided hospitalizations since starting on [place] but he is also still alive, having made no serious suicide attempts while treatment of his severe, chronic depression continues intensely on inpatient as well as outpatient basis over time. Patient shows no current evidence of suicidal or homicidal ideation, plans, intent or impulses and is well aware of his safety plan should he ever in future come to believe himself at acute risk of self-harm or harming others. (for complete list of discharge medications, see the Discharge Summary from this admission in the electronic medical record)
--- NOTE | 2017-02-24 17:22 | DISCHARGE SUMMARY REPORT-PSYCH ---
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 Allergies: Coded Allergies: NO KNOWN ALLERGIES (05/15/15) Hospital Course/TX Response: (see also, all initial/admission assessments and daily M.D./SPECIAL DELIVERY CLERK and GARAGE ATTENDANT progress notes from this admission in the electronic medical record) After apparently being out of hospital for most of a year patient appears to be suffering a relapse or early recurrent episode of severe major depressive disorder with active suicidal ideation which is particularly ominous in his case given that both of his brothers have already suicided, most recently just 4 years ago in 2012. Current anti-depressant medication regimen is not at the maximum with dose of Wellbutrin XL at only 150mg/day and Effexor, 225mg daily; on the other hand, Kenai prophylaxis appears to be fairly optimal and one should not discount the effectiveness of the latter given that despite several serious exacerbations/relapses of MDD and very prominent family history of suicide (in primary relatives) he is still living though very much struggling at this time. Patient has a very cooperative attitude which is fortunate; he has been compliant with all modalities of treatment, changes in multiple medications and even two courses of ECT; he himself inquired after possible rTMS trial, other interventions do not provide sufficient relief of symptomatology/suffering in a reasonable period of time. For the present we will adjust medication regimen and stabilize patient to return to start treatment with the [facility]; the fact that 5-out-of-5 urine tox. screens since 08/2016 have shown intoxication with cannabis casts some doubt upon any notion that Marijuana may be a "neutral" drug for this patient makes it very important for him to completely desist from its use; if he could give a firm pledge to refrain completely from Marijuana use during programming he might be better served by entry into the behavioral health rather than the dual focus [facility]; he had been completely abstinent from both cocaine and alcohol for approximately 3 years and continues to be very active in A.A. which seems likely adequate therapy for major substance abuse at this time. Patient was discharged directly to to intake at the [facility] for 12:45pm on day of discharge and to begin regular programming on . Patient's recent irritablity has resolved and he was brighter in affect, smiling, happy to be going home today and future-oriented, very much looking forward to being part of the honor guard at two parades, the first tomorrow, 02/25/2017; and the second on itself, 02/27/2017; he reiterated to me today that he was going to say his good- byes to the other veterans "before they go to the bar after the ceremonies." He is confident in being able to do that and still have a good time at the events. Patient is tolerating titration in dose of Depakote ER to 1,500mg/day by 2016; though serum valproic acid level this morning was marginal at 45.2mcg/ml, he has only been on the current dose for two days; given that he weighs less than 180 pounds the current dose will likely be sufficient once he has been on the medication for a few more days; I would recommend repeating valproic acid level in 1-2 weeks at the [facility]. Patient is also very interested in returning to outpatient treatment with Camilla Ross APRN, once he completes treatment at the [facility]; he has also promised to completely avoid ANY use of Marijuana for the duration of programming at [facility]; his urine tox. screening had been positive twice prior to the current admission and back in 10/2016. He is tolerating Kenai carbonate well at total daily dose of 1,050mg/day; serum Kenai level was well within therapeutic range at 0.9mEq/L on 02/20/2017 and continues to be very well tolerated; one might say that patient has not avoided hospitalizations since starting on Kenai but he is also still alive, having made no serious suicide attempts while treatment of his severe, chronic depression continues intensely on inpatient as well as outpatient basis over time. Discharge HBIPS - Tobacco Use Treatment Offered Post DC Medications Offered: Refused Tob Medication Tx Post DC Tobacco Treatment Plan: [facility] Appt Date: 03/01/17 - EtOH/Drug Use D/O Treatment Offered Post DC Medications Offered: NA-No EtOH/Drug Use D/O Post DC EtOH/SubAbuse TX Plan: NA-No EtOH/Drug Use D/O Metabolic Screening - Screen if on a Neuroleptic Medication - Metabolic screening should include: - Blood Pressure, BMI, Glucose or Hgb A1c, & a - Lipid profile from within the past 365 days. Metabolic Screening () Not Applicable, patient not on a neuroleptic. OR ([x]) Patient on a neuroleptic(s) . Enter below results for Glucose or Hemoglobin A1C, and lipid panel if obtained during the last 365 days. BMI: 29.600 Blood Pressure: 124/74 Laboratory Results (If applicable): [x] glucose = 92 (on 02/16/2017) glycos hgb A1c = 5.3 (on 02/20/2017) cholesterol = 187 (all drawn on 09/02/2016) triglycerides = 301 HDL = 36 LDL = 91 Discharge Instructions General Discharge Information Discharge Medications: I have called into [facility] in [place], [place] on day of discharge, 2016: Effexor XR, 150mg: ii tabs daily at 5pm/suppertime (300mg/day); #28 with no refill (anti-depressant) Wellbutrin SR, 100mg: i daily in AM (100mg/day); #14 with no refill ( augmenting anti-depressant) (patient showed irritability while up to 200mg/day of Wellbutrin which diminished coincidentally with dose reduction) Zyprexa, 10mg: i tab nightly at HS; #14 with no refill (to clarify thoughts/ help stabilize moods) Zyprexa, 2.5mg: i tab 3x/day i tab PRN racing thoughts; #56 with no refill ( clarifying thoughts/stabilizing mood) (patient is currently prescribed 17.5-20mg of Zyprexa daily) Kenai carbonate CR 450mg: i tab daily in AM; #14 with no refill (mood- stabilizer) Kenai carbonate ER 300mg: ii tabs every evening; #28 with no refill (mood- stabilizer) (patient is currently prescribed 1,050mg/day of extended release Kenai daily; Li+ level = 0.9mEq/L--02/20/2017) Depakote ER, 500mg: i tab daily in AM ii tabs every evening (total 1,500mg/day); #42 with no refill (newly rx'd mood stabilizer) Remeron, 15mg: i nightly HS (15mg/night); #14 with no refill (sleep induction /decrease HS anxiety) trazodone, 150mg: i nightly HS (150mg/night); #14 with no refill (sleep induction/anti-depressant) patient was also encouraged to utilize nicotine patch or gum to help reduce cravings for tobacco but he refused same as he had at the time of admission, citing the fact that he only smokes "about 4 cigarettes" a day; he was also given an appointment card for the next [facility] scheduled for 03/01/2017 at 4pm, facilitated by Latanya Mccarthy LCSW patient told me he also had a sufficient supply at home to continue to take: aorvastatin, 10mg daily at suppertime (to control lipids) fish oil, 1,050mg 2x/day (heart health) multivitamin, i tab daily (vitamin supplement) Multiple Neuroleptics: ([x]) Not Applicable OR Document below three failed attempts at monotherapy, or a plan to taper to monotherapy, or augmentation of Clozapine. () Patient's Diet: heart healthy Patient's Activity: without restrictions DC Disposition: to home Recommendations: Following an interval of outpatient stabilization I would recommend attempting to taper down the current dose of Zyprexa. I would advise repeating valproic acid level in a few weeks to check on the adequacy of current Depakote dose (the medication was newly added during this admission). Referred To: Patient was referred directly/seamlessly to intake at [facility] for 12:45pm on date of discharge. He was given an appointment card for the next [facility] scheduled for 03/01/2017 at 4pm, facilitated by Latanya Mccarthy LCSW. He will resume active role in local A.A. 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 Copies To: EDILSON VALADEZ,BOB; [facility] Arce LPC
== END 2017-02-24 13:26 | DRG 751 ==
LOC: ERH 11:58 → CP SOUTH 19:16 → ERHI 19:16 → EDBEDREQ 19:45 → ENTRNSPT 21:05 → CP SOUTH 21:34 → CMPTRNSPT 22:30 → CP SOUTH 02-17 09:53 → ENPENDDIS 02-24 14:00
PROVIDERS: Psychiatry & Neurology Addiction Medicine; Student in an Organized Health Care Education/Training Program; ADMIT Psychiatry & Neurology Psychiatry
DX: F33.2 Major depressive disorder, recurrent severe without psychotic features (principal); R45.851 Suicidal ideations; F43.10 Post-traumatic stress disorder, unspecified; F12.10 Cannabis abuse, uncomplicated; Z72.89 Other problems related to lifestyle; J44.9 Chronic obstructive pulmonary disease, unspecified; F17.210 Nicotine dependence, cigarettes, uncomplicated; I10 Essential (primary) hypertension; E78.5 Hyperlipidemia, unspecified; Z86.19 Personal history of other infectious and parasitic diseases
CPT/HCPCS: 36415; 80307; 81001; 81003; 82436; 90834; 93005; 93010; G0463-25; G0480; J3490

== ENCOUNTER 2018-02-07 20:15 | Inpatient (IN) | payer OTHER ==
[~2018-02-07] VITALS: Ht 165.1 cm; Wt 86.8 kg
[~2018-02-07 20:15] MED LIST changes: +DIVALPROEX SOD500 M2 PO; +EFFEXOR XR150 M1 PO; +OLANZAPINE2.5 M1 PO; +WELLBUTRIN SR100 M2 PO; +WELLBUTRIN XL150 M2 PO
--- NOTE | 2018-02-07 20:20 | ED PSY CRISIS COLLATERAL NOTE ---
Collateral Note Collateral Note Family/Inform/Naz Contacts: Crisis received call from Jo-Annlaw Carrillo ([phone]), pts private practice outpatient provider. She reported that pt will be going to the ED tonight, a friend will be bringing him. Jo-Ann repots that pt met with her today and reported SI. He has had a lot of stressors recently: he applied for disability and got denied, his sister who he lives with has asked him to move out, he had an intake at [facility] but has not heard back from them yet. Pt has a history of hospitalizations for mental health and substance abuse treatment. Jo-Ann reports that pt is sober, but expressing increased cravings to drink and use cannabis. Jo-Ann identified that pt is diagnosed with major depression. He has a history of suicide attempts and two of his brothers successfully committed suicide. Jo-Ann states that if pt does get admitted to the hospital that she believes that IOP would be helpful for him upon discharge.
--- NOTE | 2018-02-07 21:04 | ED PSYCHIATRIC COMPLAINT ---
History of Present Illness General Chief Complaint: Psychiatric Related Complaint Stated Complaint: PT IS SI POSTIVE Source: patient Exam Limitations: no limitations Vital Signs & Intake/Output Vital Signs & Intake/Output Vital Signs Date Time Temp Pulse Resp B/P B/P Pulse O2 O2 Flow FiO2 Mean Ox Delivery Rate 02/09 936 97.6 88 20 124/84 98 Room Air 02/08 907 98 Room Air 02/08 0659 97.6 62 20 129/76 93 Room Air 02/078 97.9 65 16 140/81 94 Room Air 02/07 2027 98.1 77 142/86 95 ED Intake and Output 02/08 0000 02/07 1200 Intake Total Output Total Balance Patient 195 lb Weight Weight Reported by Patient Measurement Method Allergies Coded Allergies: NO KNOWN ALLERGIES (05/15/15) Reconcile Medications Atorvastatin Calcium 10 MG TABLET 1 TAB PO QPM CHOLESTEROL (Reported) Bupropion HCl (Wellbutrin Sr) 100 MG TABLET.ER 100 MG PO 0800 anti-depressant augmentation Divalproex Sodium 500 MG TABLET.DR 500 MG PO 0800 stabilize moods Divalproex Sodium 500 MG TABLET.DR 1,000 MG PO 2000 stabilize moods [place] Carbonate ([place] Carbonate ER) 300 MG TABLET.ER 2 TAB PO QPM MENTAL HEALTH (Reported) [place] Carbonate ([place] Carbonate ER) 450 MG TABLET.ER 1 TAB PO DAILY MENTAL HEALTH (Reported) Mirtazapine 15 MG TABLET 1 TAB PO QPM SLEEP (Reported) Multivitamin (Multiple Vitamins) 1 EACH TABLET 1 TAB PO DAILY VITAMIN SUPPORT (Reported) Olanzapine 10 MG TABLET 1 TAB PO QPM SLEEP (Reported) Olanzapine 2.5 MG TABLET 2.5 MG PO 0800,1300,1700 racing thoughts Trazodone HCl 150 MG TABLET 1 TAB PO QPM SLEEP (Reported) Venlafaxine HCl (Effexor XR) 150 MG CAP.ER.24H 300 MG PO 1700 anti-depressant Triage Note: PT PRESENTS TO THE ER C/O DEPRESSION AND SI. PT STATES THAT HE HAS BEEN BATTLING THIS FOR 4 YEARS. PT STATES TODAY HE FEELS WORSE BECAUSE A FEW BAD THINGS HAPPENED LATELY.. PT STATES THAT HE WOULD HANG HIMSELF, PT STATES HE HAS THE ROPE AND ITS AVAILABLE..PT STATES THAT HE ATTEMPTED THIS PRIOR TO TODAY ABOUT FOR YEARS AGO AND WAS CAUGHT WHILE TYING THE ROPE. PT DENIES ALCOHOL BUT STATES SMOKED WEED YESTERDAY. Triage Nurses Notes Reviewed? yes Onset: Gradual Duration: week(s):, changing over time, continues in ED, getting worse Timing: recent history Severity: moderate, severe Associated Symptoms: anxiety, suicidal ideation HPI: 57-year-old male past medical history of anxiety, depression, COPD, hypertension , hyperlipidemia presents for evaluation of suicidal ideation and depression. Patient states he's been depressed for several years now getting worse. He's been taking his medication as directed but states that he's had increasing life stressors recently. His sisters kicking him out of his house and his friend several weeks ago. He states she's been having thoughts of wanting to hurt himself. He has a plan to hang himself. He denies any current drug or alcohol use but states she smoked marijuana yesterday. No nausea vomiting sweats or chills no fever. No chest pain or shortness of breath. He is a current every day cigarette smoker. No hallucinations. (Raoul Cordoba) Past History Travel History Traveled to [place] past 21 day No Medical History Any Pertinent Medical History? see below for history Neurological: NONE EENT: NONE Cardiovascular: hypertension, hyperlipidemia Respiratory: COPD Gastrointestinal: GERD Hepatic: hepatitis C (completed Harvoni treatment), (RESOLVED WITH MED) Renal: NONE Musculoskeletal: NONE Psychiatric: alcohol dependence, anxiety, depression, insomnia, substance abuse (cocaine until 2-3 years ago), SOBER (FROM ETOH) 2.5 YRS USES MARIJUANA AT PRESENT Endocrine: NONE Blood Disorders: NONE Cancer(s): NONE CHINESE HERBALIST/Reproductive: NONE History of MRSA: No History of VRE: No History of CDIFF: No Isolation History: Standard Surgical History Surgical History: non-contributory Psychosocial History Who do you live with Family What is your primary language Omani Tobacco Use: Current Daily Use Daily Tobacco Use Amount/Type: => 5 Cigarettes daily Family History Hx Contributory? No (Raoul Cordoba) Review of Systems Review of Systems Constitutional: Reports: no symptoms. EENTM: Reports: no symptoms. Respiratory: Reports: no symptoms. Cardiovascular: Reports: no symptoms. GI: Reports: no symptoms. Genitourinary: Reports: no symptoms. Musculoskeletal: Reports: no symptoms. Skin: Reports: no symptoms. Neurological/Psychological: Reports: see HPI, anxiety, depressed. Hematologic/Endocrine: Reports: no symptoms. Immunologic/Allergic: Reports: no symptoms. All Other Systems: Reviewed and Negative (Raoul Cordoba) Physical Exam Physical Exam General Appearance: well developed/nourished, no apparent distress, alert, awake Head: atraumatic, normal appearance Eyes: Bilateral: normal appearance, PERRL, EOMI. Ears, Nose, Throat: normal pharynx, normal ENT inspection, hearing grossly normal Neck: normal inspection, supple, full range of motion Respiratory: normal breath sounds, chest non-tender, no respiratory distress, lungs clear Cardiovascular: regular rate/rhythm, normal peripheral pulses Gastrointestinal: normal bowel sounds, soft, non-tender, no organomegaly Extremities: normal range of motion Neurological/Psychiatric: no motor/sensory deficits, awake, alert, calm Appearance/Memory/Insight: disheveled Behavoir/Eye Contact/Speech: cooperative, normal speech Thoughts/Hallucinations: normal thought pattern, no apparent hallucination Skin: intact, normal color, warm/dry SAD PERSONS SAD PERSONS Response Value Male Sex? yes 1 Age <19 or >45 years? yes 1 Depression/Hopelessness? yes 2 Previous Attempts/Psych Care yes 1 Single//? yes 1 Organized/Serious Attempt yes 2 Social Support? has no support 1 Total 9 SAD PERSONS Done? yes (Raoul Cordoba) Progress Differential Diagnosis: dementia, drug intoxication, drug overdose, drug withdrawal, electrolyte abnormality Plan of Care: Orders Procedure Date/time Status Regular Diet 02/08 B Active Admit to inpatient psych 02/08 1018 Active Admit to inpatient psych 02/08 0854 Active Add-on Test (ER Only) 02/08 0853 Active Add-on Test (ER Only) 02/08 0039 Active LITHIUM 02/07 2100 Complete GLYCOSYLATED HGB 02/07 2100 Complete DEPAKOTE LEVEL 02/07 2100 Complete Continuous Observation Monitor 02/07 2030 Active URINE DRUG SCREEN FOR ER ONLY 02/07 2030 Complete URINALYSIS 02/07 2030 Complete ETHANOL 02/07 2030 Complete COMPREHENSIVE METABOLIC PANEL 02/07 2030 Complete CBC WITHOUT DIFFERENTIAL 02/07 2030 Complete ED CRISIS PSYCH CONSULT 02/07 2030 Active Current Medications Sig/Ester Start time Last Medication Dose Stop Time Status Admin [place] Carbonate 600 MG QPM 02/08 2100 UNVr (Lithobid Slow Release) Olanzapine 10 MG QPM 02/08 2100 UNVr (Zyprexa) Trazodone HCl 150 MG QPM 02/08 2100 UNVr (Desyrel) Divalproex Sodium 1,000 MG 02/08 UNVr (Depakote) Acetaminophen 650 MG Q4P PRN 02/08 09 UNVr (Tylenol) Al Hydroxide/Mg 30 ML Q4-6 PRN PRN 02/08 09 UNVr Hydroxide (Maalox Plus) [place] Carbonate 450 MG DAILY 02/08 09 UNVr 02/08 (Eskalith Cr) 09 Lorazepam 1 MG Q6P PRN 02/08 09 UNVr (Ativan) Magnesium Hydroxide 30 ML AT BEDTIME PRN 02/08 09 UNVr (Milk Of Magnesia) Bupropion HCl 100 MG 0802/08 0800 UNVr 02/08 (Wellbutrin SR) 09 Divalproex Sodium 500 MG 0800 02/08 0800 UNVr 02/08 (Depakote) 0900 Olanzapine 2.5 MG 0800,1300,1700 02/08 08 UNVr 02/08 (Zyprexa 2.5MG) 0900 Venlafaxine HCl 150 MG 0800 02/08 0800 UNVr 02/08 (Effexor Xr) 0900 Laboratory Tests 02/07/18 2334: Urine Opiates Screen < 100, Methadone Screen 46, Barbiturate Screen < 60, Ur Phencyclidine Scrn < 6.00, Amphetamines Screen 184, U Benzodiazepines Scrn < 85, Urine Cocaine Screen < 50, Urine Cannabis Screen > 80.00 H, Urine Color YEL, Urine Clarity CLEAR, Urine pH 6.5, Ur Specific [place] 1.020, Urine Protein NEG, Urine Ketones NEG, Urine Nitrite NEG, Urine Bilirubin NEG, Urine Urobilinogen 0.2, Ur Leukocyte Esterase NEG, Ur Microscopic EXAM NOT REQUIRED, Urine Hemoglobin NEG, Urine Glucose NEG 02/07/18 2100: Anion Gap 11, Estimated GFR > 60, BUN/Creatinine Ratio 18.2, Glucose 102 H, Hemoglobin A1c 5.3, Calcium 10.0, Total Bilirubin 0.4, AST 25, ALT 44, Alkaline Phosphatase 61, Total Protein 7.5, Albumin 4.5, Globulin 3.0, Albumin/Globulin Ratio 1.5, CBC w Diff NO MAN DIFF REQ, RBC 4.61 L, MCV 94.4 H, MCH 31.1 H, MCHC 32.9 L, RDW 14.1, MPV 8.1, Gran % 53.3, Lymphocytes % 36.0, Monocytes % 8.1, Eosinophils % 2.0, Basophils % 0.6, Absolute Granulocytes 5.4, Absolute Lymphocytes 3.6 H, Absolute Monocytes 0.8 H, Absolute Eosinophils 0.2, Absolute Basophils 0.1, Valproic Acid 46.0 L, [place] 1.2, Serum Alcohol < 10.0 Patient seen and evaluated. He is here with suicidal ideation with plan to hang himself. He has a long history of depression and previous suicide attempts. We 'll check basic labs patient will be evaluated by crisis. Blood work does not show anything acute changes. Patient is medically cleared to see crisis. Waiting on their recommendations. Patient seen at Dr. Mcdowell pending crisis. Hand-Off Endorsed To: Rivera Mcdowell MD Endorsed Time: 37 Pending: consult (crisis) (Raoul Cordoba) Hand-Off Endorsed To: Arnoldo Tate MD Endorsed Time: 07 Pending: consult (crisis eval) (Rivera Mcdowell MD) Comments: 02/08/2018 7:16:37 AM patient signed out to me by Dr. Mcdowell at shift change management director. (Lea QUINTERO,Arnoldo Quevedo) Departure Departure Disposition: STILL A PATIENT Condition: Stable Referrals: Christianne Hernández MD (PCP/Family) Departure Forms: Customer Survey General Discharge Information (Raoul Cordoba) Departure Clinical Impression Primary Impression: Major depression Qualifiers: Major depression recurrence: recurrent Active/Remission status: currently active Major depression episode severity: severe Psychotic features: without psychotic features Qualified Code: F33.2 - Major depressive disorder, recurrent severe without psychotic features Secondary Impressions: Suicidal ideations Psych Admission Note Psychiatric Admission: I have seen and evaluated JUSTIN STARR. I have also reviewed all the pertinent lab results and diagnostic results. JUSTIN STARR will be admitted to our inpatient Psychiatric unit for treatment and care. (Lea QUINTERO,Arnoldo Quevedo)
[2018-02-07 21:30] LABS: ABSOLUTE BASOPHIL COUNT 0.1 /CUMM (0.0-0.2); ABSOLUTE EOSINOPHIL COUNT 0.2 /CUMM (0.0-0.7); ABSOLUTE GRANULOCYTE CT 5.4 /CUMM (1.4-6.5); ABSOLUTE LYMPH COUNT 3.6 /CUMM (1.2-3.4); ABSOLUTE MONOCYTE COUNT 0.8 /CUMM (0.10-0.60); BASOPHIL % 0.6 % (0.0-2.0); HEMATOCRIT 43.5 % (42-52); MEAN CORPUSCULAR HGB 31.1 PG (27.0-31.0); MEAN CORPUSCULAR HGB CONC 32.9 G/DL (33.0-37.0); MEAN CORPUSCULAR VOLUME 94.4 FL (80.0-94.0); MEAN PLATELET VOLUME 8.1 FL (7.4-10.4); PLATELET COUNT 299 /CUMM (130-400); RBC DISTRIBUTION WIDTH 14.1 % (11.5-14.5); RED BLOOD CELL CT 4.61 /CUMM (4.70-6.10); WHITE BLOOD CELL COUNT 10.1 /CUMM (4.8-10.8)
[2018-02-07 21:33] LABS: GRANULOCYTE % 53.3 % (42.2-75.2)
[2018-02-08 01:05] LABS: LITHIUM 1.2 mmol/L (0.6-1.2)
--- NOTE | 2018-02-08 08:13 | ED PSYCH CRISIS CONSULTATION ---
See Addendum Crisis Consult Basic Assessment Date of Consult: 02/08/18 Responsible Person/Accompanied By: self Insurance Authorization: Insurance #1: Insurance name: LOUIE BIRD Phone number: Policy number: [id number] Group number: Authorization number: ED Provider: Patient's ED Provider: Raoul Cordoba Primary Care Physician: Patient's PCP: Christianne Hernández MD PCP's Current Psychiatrist: Camilla Ross APRN Chief Complaint: Psychiatric Related Complaint Patient's Quote: "I'm really really depressed again" Present Illness: Pt is a 57 year male presenting to the ED with SI. Patient is currently in treatment with Camilla Ross APRN at [facility] for medication management. Camilla prescribes the following medications: Zyprexa 2.5 mg three times per day with one additional PRN; Zyprexa 10 mg nightly; Effexor XR 300 mg daily at 5pm; Trazodone 50 mg at night; Remeron 7.5 mg at night; Lithobid 600 mg in the evening; Eskalith CR 450 mg daily; Wellbutrin SR 100 mg daily; Depakote ER 500mg daily, Depakote ER 1000 mg at night and Propranolol 20mg twice daily. Pt also sees a therapist, PATY Jeter. Pt expressed SI to his therapist yesterday and she advised him to come to the ED. Per Collateral note authored by Kayleen Pedroza LPC last night: Crisis received call from Jo-Ann Carrillo ([phone]), pts private practice outpatient provider. She reported that pt will be going to the ED tonight, a friend will be bringing him. Jo-Ann repots that pt met with her today and reported SI. He has had a lot of stressors recently: he applied for disability and got denied, his sister who he lives with has asked him to move out, he had an intake at [facility] but has not heard back from them yet. Pt has a history of hospitalizations for mental health and substance abuse treatment. Jo-Ann reports that pt is sober, but expressing increased cravings to drink and use cannabis. Jo-Ann identified that pt is diagnosed with major depression. He has a history of suicide attempts and two of his brothers successfully committed suicide. Jo-Ann states that if pt does get admitted to the hospital that she believes that IOP would be helpful for him upon discharge. Patient has been hospitalized psychiatrically 7x in [facility] with his last admission being in January 2017. Patient has 1 previous suicide attempt 3 years ago that was interrupted by the patient's mother who called pt while he was attempting to hang himself. Patient has had two brother who have completed suicide (1 by hanging-pt found brother handing and the other by carbon monoxide poisoning). Pt presents as depressed with a flat affect, decreased appetite, lack of motivation, low energy and SI with thoughts to hang himself. Pt reports he takes his medications regularly but are wondering if they are working anymore. Patient 's lithium level is 1.2 in the ED and Depakote level is 46. Pt reports prior ECT treatment at [place] approximately 2 years ago. Pt stated he received approximately 15-18 treatments. He believes he has permanent short term memory loss. Pt was able to immediately recall 3 items and then recall 2 of the 3 items 5 minutes later. 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 Patient has had inpatient and outpatient substance abuse treatment for ETOH in the past. Pt has been sober from ETOH for 3-3.5 years. Pt continues to attend AA to maintain sobriety from ETOH. Pt does continue to smoke marijuana daily. Pt's utox was positive for cannabis only. Pt was living with his sister until recently when he left as he felt he overstayed his welcome. Pt is currently homeless. Pt reports he did a 211 phone screen for housing awhile ago and he is unsure if he is on a waitlist for housing. Pt's only other family member is his mother who lives in [place]. Crisis completed the C-SSRS. Pt has the following risk factors: Lifetime interrupted suicide attempted, wishes to be , suicidal thoughts, homelessness, family history of suicide x2. Pt has the following protective factors: identifies a reason for living-mom. Crisis consulted with Dr. Miller. Pt will be admitted to [facility]. Pt agrees and will sign involuntarily. Patient's Address: [address] [place] [address] Other Phone Number: Who Do You Live With? Patient/Self Family/Informants Interviewed: Mirtha Carrillo- therapist and Camilla Ross APRN Allergies - Coded Allergies: NO KNOWN ALLERGIES (05/15/15) Current Medications - Scheduled Medications Atorvastatin Calcium 10 MG TABLET 1 TAB PO QPM CHOLESTEROL #30 (Reported) Entered as Reported by Ranjit Kirkpatrick on 09/02/16 1239 Bupropion HCl (Wellbutrin Sr) 100 MG TABLET.ER 100 MG PO 0800 anti-depressant augmentation #14 TAB Prescribed by Rolan Wu MD on 02/24/17 Divalproex Sodium 500 MG TABLET. 500 MG PO 0800 stabilize moods #14 TAB Prescribed by Rolan Wu MD on 02/24/17 Divalproex Sodium 500 MG TABLET. 1,000 MG PO 2000 stabilize moods #28 TAB Prescribed by Rolan Wu MD on 02/24/17 Walsh Carbonate (Walsh Carbonate ER) 300 MG TABLET.ER 2 TAB PO QPM MENTAL HEALTH #60 (Reported) Entered as Reported by Ranjit Kirkpatrick on 09/02/16 1237 Walsh Carbonate (Walsh Carbonate ER) 450 MG TABLET.ER 1 TAB PO DAILY MENTAL HEALTH #30 (Reported) Entered as Reported by Ranjit Kirkpatrick on 09/02/16 1237 Mirtazapine 15 MG TABLET 1 TAB PO QPM SLEEP #30 (Reported) Entered as Reported by Ranjit Kirkpatrick on 09/02/16 1236 Multivitamin (Multiple Vitamins) 1 EACH TABLET 1 TAB PO DAILY VITAMIN SUPPORT (Reported) Entered as Reported by Diane Dickerson on 08/01/14 1743 Olanzapine 10 MG TABLET 1 TAB PO QPM SLEEP #30 (Reported) Entered as Reported by Ranjit Kirkpatrick on 09/02/16 1236 Olanzapine 2.5 MG TABLET 2.5 MG PO 0800,1300,1700 racing thoughts #56 TAB Prescribed by Rolan Wu MD on 02/24/17 Trazodone HCl 150 MG TABLET 1 TAB PO QPM SLEEP (Reported) Entered as Reported by Diane Dickerson on 01/28/15 1739 Venlafaxine HCl (Effexor XR) 150 MG CAP.ER.24H 300 MG PO 1700 anti-depressant #28 TAB Prescribed by Jazmin QUINTERO,Rolan Lackey on 02/24/17 Laboratory Results: Laboratory Tests 02/07/18 2334: Urine Opiates Screen < 100, Methadone Screen 46, Barbiturate Screen < 60, Ur Phencyclidine Scrn < 6.00, Amphetamines Screen 184, U Benzodiazepines Scrn < 85, Urine Cocaine Screen < 50, Urine Cannabis Screen > 80.00 H, Urine Color YEL, Urine Clarity CLEAR, Urine pH 6.5, Ur Specific [place] 1.020, Urine Protein NEG, Urine Ketones NEG, Urine Nitrite NEG, Urine Bilirubin NEG, Urine Urobilinogen 0.2, Ur Leukocyte Esterase NEG, Ur Microscopic EXAM NOT REQUIRED, Urine Hemoglobin NEG, Urine Glucose NEG 02/07/18 2100: Anion Gap 11, Estimated GFR > 60, BUN/Creatinine Ratio 18.2, Glucose 102 H, Calcium 10.0, Total Bilirubin 0.4, AST 25, ALT 44, Alkaline Phosphatase 61, Total Protein 7.5, Albumin 4.5, Globulin 3.0, Albumin/Globulin Ratio 1.5, CBC w Diff NO MAN DIFF REQ, RBC 4.61 L, MCV 94.4 H, MCH 31.1 H, MCHC 32.9 L, RDW 14.1, MPV 8.1, Gran % 53.3, Lymphocytes % 36.0, Monocytes % 8.1, Eosinophils % 2.0, Basophils % 0.6, Absolute Granulocytes 5.4, Absolute Lymphocytes 3.6 H, Absolute Monocytes 0.8 H, Absolute Eosinophils 0.2, Absolute Basophils 0.1, Valproic Acid 46.0 L, Walsh 1.2, Serum Alcohol < 10.0 Past History Past Medical History Neurological: NONE EENT: NONE Cardiovascular: hypertension, hyperlipidemia Respiratory: COPD Gastrointestinal: GERD Hepatic: hepatitis C (completed [facility] treatment), (RESOLVED WITH MED) Renal: NONE Musculoskeletal: NONE Psychiatric: alcohol dependence, anxiety, depression, insomnia, substance abuse (cocaine until 2-3 years ago), SOBER (FROM ETOH) 2.5 YRS USES MARIJUANA AT PRESENT Endocrine: NONE Blood Disorders: NONE Cancer(s): NONE INSPECTOR TOOL/Reproductive: NONE Past Surgical History Surgical History: non-contributory Psychosocial History Strengths/Capabilities: Pt has maintained sobriety for 3-3.5 years from ETOH. Pt attends therapy, medication management appointments and AA. Physical Limitations (Interventions): None identified. Psychiatric Treatment History Psych Treatment 1 Psychiatric Treatment Yes Inpatient Treatment Yes Location of Treatment CPS x7 (last IP 01/2017) Reason for Treatment depression, SI Dates of Treatment multiple admissions with last admission to [facility] 01/2017 Response to Treatment fair Psych Treatment 2 Psychiatric Treatment Yes Outpatient Treatment Yes Location of Treatment [facility]; Private therapist- Mirtha, [facility] Reason for Treatment Depression, SI Dates of Treatment current w/ OPS for meds and Mirtha for therapy, ECT- 2 years ago Response to Treatment fair Diagnosis by History: Major Depression, PTSD alcohol abuse cannabis abuse Substance Use/Abuse History Drug Use/Abuse 1 Substances Used/Abused Yes Substance Used/Abused Alcohol First Use 9 Last Used over 3 years ago How much used/taken bottle of tequila and bottles of beers How often daily For how long 30 years Route of use oral Drug Use/Abuse 2 Substances Used/Abused Yes Substance Used/Abused Cocaine (& Crack Cocaine) First Use high school Last Used 10 years ago How much used/taken varied How often on and off, not consistantly For how long 25 years Route of use snort and smoke Drug Use/Abuse 3 Substances Used/Abused Yes Substance Used/Abused Marijuana First Use 9 years old Last Used yesterday How much used/taken varies How often daily For how long approx 48 years Route of use smoke Drug Use/Abuse 4 Substances Used/Abused Yes Substance Used/Abused Methamphetamines First Use 1970 Last Used 1984 How much used/taken varied How often 2-3x/week For how long 15 years Route of use smoke Drug Use/Abuse 5 Substances Used/Abused Yes Substance Used/Abused Hallucinogens First Use high school Last Used 1984 How much used/taken varied How often see above For how long 12 years Route of use smoke Drug Use/Abuse 6 Substances Used/Abused Yes Substance Used/Abused Nicotine First Use 9 Last Used 06/13/16 How much used/taken 1 pack/ day How often daily For how long 46 years Route of use smoke Drug Use/Abuse 7 Substances Used/Abused Yes Substance Used/Abused Heroin First Use 1976 Last Used 1976 How much used/taken unk How often daily For how long 2-3 weeks Route of use IV Drug Use/Abuse 8 Substances Used/Abused Yes Substance Used/Abused Prescribed Opiates (& non prescribed opiates) First Use high school Last Used 12 years ago How much used/taken varied on availabilty How often varied For how long 33 years Route of use injest pills, snort Drug Use/Abuse 9 Substances Used/Abused Yes Substance Used/Abused Benzodiazepines First Use high school Last Used a long time ago How much used/taken varied How often on weeekends For how long 15 years Route of use inject pills/snort Substance Abuse Treatment Substance Abuse Treatment Past Substance Abuse [place] Yes Inpatient Treatment Yes Outpatient Treatment Yes Location of Treatment , [facility] Reason for Treatment ETOH Dates of Treatment CVH- 30 years ago Response to Treatment pt has maintained sobreity from ETOH for 3 years. Pt has maintained sobreity from all other drugs with exception of marijuana. Current Mental Status Mental Status Orientation: Person, Place, Situation Affect: Sad Speech: Soft Neuro-vegetative: Anhedonia, Appetite Decreased, Energy Decreased Appearance Appearance- Dress/Hygiene: Pt presents in hospital scrubs; question armando tattoo on his ring finger along with other tattoos on his arms. Behaviors Thought Process: Logical/Rational Thought Content: WNL Memory: WNL Insight: Fair SI/HI Risk Assessment Past Suicidal Ideation/Attempts Yes Current Suicidal Ideation/Att Yes Past Homicidal Ideation/Att: No Current Homicidal Ideation/Attempts No Degree of Intent: Thoughts/No Intent Danger To: Self Risk Factors: high anxiety/distress, history of suicide atmpts, SA/MH hospitalized, substance abuse, lives alone, male Lethality Ratin (most severe) PTSD Checklist PTSD Done? patient declined ED Management Sitter: Yes Restraints: No DSM5/PS Stressors/Medical Prob Diagnosis' (DSM 5, Stressors, Medical): F33.2 Major Depressive Disorder, Recurrent F43.10 PTSD F10.20 Alcohol Use Disorder, Severe in full sustained remission Hx of Hepatitis C High Cholesterol Occupational Issues Finanical Issues Current GAF: 21 Departure Disposition Psych Medical Clearance Date: 02/08/18 Medically Cleared at: 0745 Time Started: 744 Time Ended: 804 Date Disposition Established: 02/08/18 Time Disposition Established: 844 Plan for Disposition - Modality: Inpatient Psychiatry Facility: [facility] Referrals Edgar QUINTERO,Christianne (PCP/Family)
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
[2018-02-08] MEDS ORDERED: MIRTAZAPINE7.5 M1 PO (11:52)
[2018-02-08] MEDS ORDERED: TRAZODONE HCL50 M1 PO (11:54)
[2018-02-08] MEDS ORDERED: PROPRANOLOL HCL20 M1 PO (11:56)
[2018-02-08 16:03] VITALS: BP 131/84
[2018-02-08 16:50] VITALS: BP 136/71
[2018-02-08 19:48] VITALS: BP 146/79
[2018-02-09 07:41] VITALS: BP 132/74
--- NOTE | 2018-02-09 08:02 | CPS PROVIDER INIT ASMT PSYCH ---
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 The patient has been with [facility] 's outpatient psychiatric services. His been told by his sister that he should be leaving where he is living and he might be facing homelessness. Circumstances Leading to Admission: Increasing depression and thoughts of suicide Problem(s) Justifying Need for Admission: Thoughts of suicide Past Psychiatric History Past Diagnosis(es)- if any: Major Depressive Disorder, Recurrent; severe but nonpsychotic but with active suicidal ideation and plan to hang himself hx of PTSD Cannabis Use Disorder (rated as "mild") but 5 out of 5 urine tox. screens since 08/17 have shown intoxication with cannabis Alcohol Use Disorder, severe; in sustained full remission for past 2+ years ( with active A.A. involvement) hx of Hepatitis C (previously treated with Harvoni) Hypertension Hypercholesterolemia COPD (continues to smoke 1+ PPD) Past Precipitating Factors- if any: looks like the precipitant for this admission was the possibility of facing homelessness - Include inpatient and outpatient treatment Treatment History: The patient has had numerous inpatient psychiatric admissions and has been with the outpatient psychiatric services at [facility] with Camilla Ross APRN patient has been in more or less continuous treatment with [facility] since first admisison to [facility] in 05/2014; since then he has been admitted to [facility] 7 times, been treated in [facility] and [facility], in private counseling (with Ms. Daja Carrillo) with medication management by Camilla Ross APRN. He has been active in A.A. and abstinent from alcohol for the past 2+ years, leading A.A. meetings once a week at his home meeting (and "making coffee" weekly at meetings). Patient has also undergone ECT treatment twice at [facility]; the initial treatment was 10+ unilateral with good but transient improvement, the second series in 2015 (after his most recent [facility] admission) a better response from no more than 6-7 bilateral treatments but with severe accompanying side effects, memory impairment and relapse within the year. History of Suicide Attempts or Gestures has had one previous serious suicide attempt in 2014 ("tied a string around his neck" with intent to hang himself but mother intervened); several instances of suicidal ideation via overdose or hanging himself (as had a brother in 2012) Substance Abuse History: long history of alcohol abuse but abstinent and regularly involved in A.A. for past 2+ years with no relapses reported; had occasionally used cocaine up until 2-3 years ago; continues to smoke Marijuana, probably more regularly than he describes (5 out of 5 urine tox. screens showed intoxication with cannabis since 08/2016) Allergies: Allergies: Coded Allergies: NO KNOWN ALLERGIES (05/15/15) Home Med List: Zyprexa 2.5 mg 3 times a day with one additional PRN Zyprexa 10 mg nightly Effexor XR 300 mg daily at 5 PM Trazodone 50 mg at night Remeron 7.5 mg at night Lithobid 600 mg in evening Eskalith CR 450 mg daily Wellbutrin SR 100 mg daily Depakote ER 500 mg daily Depakote ER 1000 mg at night Propranolol 20mg twice a day - Include any medical condition(s) that may - impact the patient's recovery/remission Past History Medical History Neurological: NONE EENT: NONE Cardiovascular: hypertension, hyperlipidemia Respiratory: COPD Gastrointestinal: GERD Hepatic: hepatitis C (completed Harvoni treatment), (RESOLVED WITH MED) Renal: NONE Musculoskeletal: NONE Psychiatric: alcohol dependence, anxiety, depression, insomnia, substance abuse (cocaine until 2-3 years ago), SOBER (FROM ETOH) 2.5 YRS USES MARIJUANA AT PRESENT Endocrine: NONE Blood Disorders: NONE Cancer(s): NONE 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 History of MRSA: No History of VRE: No History of CDIFF: No Isolation History: Standard Surgical History Surgical History: non-contributory Psychiatric Family/Social Hx Family History Psychiatric Illness: both brothers presumably depressed Substance Use: all male relatives on both sides of family had problems with alcohol Suicides: both brothers committed suicide, first via CO poisoning at age 20; second hanged himself in 2012 (from a tree in the front yard of house he had been sharing with patient) Social History Living Situation: The patient has been living with his sister but it looks like he might be asked to leave Significant Relationships (family/friends): He has some support through AA Education: High school education Vocation/Occupation: [employer] 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 - #1 Recognizing dangerous situations. - #2 Coping Skills. - #3 Basic information about quitting. Status of Tobacco Cessation Counseling: #1, #2 AND #3 Completed Cessation Med Status Nicotine Gum Ordered Alcohol Screening - ETOH screen POS if BAL >=80 or Audit-C>= M4/F3 Audit-C Score from Diag Assess: 0 Blood Alcohol Level: Laboratory Tests 02/07 2100 Toxicology Serum Alcohol (<10 MG/DL) < 10.0 Alcohol Use Screening Results: Neg per Audit C &/or BAL - If ETOH counseling indicated - the following topics are required. - #1 Express concern about the patient's - drinking at unhealthy levels, include informing - of national norms for moderate drinking: - men <= 14 drinks/week, max 4 drinks/occasion - women <= 7 drinks/week, max 3 drinks/occasion - #2 Providing feedback, including linking alcohol to - negative physical effects (liver injury, hypertension) - negative emotional effects (relationship problems and - depression) - negative occupational consequences (reduced work - performance) - #3 Advising the patient to abstain from alcohol or - to drink below national norms for moderate drinking - (as listed above). Status of ETOH Use Counseling: N/A B/C NO ETOH Use Metabolic Screening - Screen if on a Neuroleptic Medication - Metabolic screening should include: - Blood Pressure, BMI, Glucose or Hgb A1c, & a - Lipid profile from within the past 365 days. Metabolic Screening Patient on a neuroleptic(s) . Enter below results for Hemoglobin A1C, and lipid panel if obtained during the last 365 days. BMI: 32.400 Blood Pressure: 129/81 Laboratory Results From [facility] (If applicable): Lab Cholesterol 190 MG/DL 08/03/17 0925 HDL Cholesterol 43 mg/dL 08/03/17 0925 Hemoglobin A1c 5.3 % 02/07/182099 LDL Cholesterol, Calc 102 mg/dL 08/03/17924 Triglycerides 228 mg/dL H 08/03/17924 Exam and Plan Mental Status Examination Ambulation Status: Patient was steady on his feet Appearance: Unremarkable appearance Attitude towards examiner: He was calm and cooperative Psychomotor activity: He showed normal psychomotor activity Behavior: He showed normal behavior Quality of speech: Normal speech, not pressured, not slurred Affect: Constricted affect Mood: Reported depressed mood Suicidal Ideation: On and off thoughts of suicide Homicidal Ideation: Denied thoughts of violence or homicide Hallucinations: Denied hallucinations Paranoid/Delusional Material: Denied feeling paranoid, there were no delusions during the interview Difficulties with thought organization: He was coherent, there was no thought disorder Insight: Fair Judgment: Fair Orientation: Alert and oriented to time place and person Cognition: Minor difficulties with attention and concentration Memory Function: No gross deficits in short-term memory Estimate of intellectual functioning: Average Assets/Strengths Patient Identified Assets/Strengths: The patient appears to be resilient, resourceful, and likable Impression/Plan Impression and Plan: 57-year-old with significant history of depression presents with the increasing depression and thoughts of suicide. The patient may be facing homelessness as his sister may have asked him to leave the house - Include all active medical diagnosis that require tx DSM 5 Diagnosis(es): Major depressive disorder recurrent severe (MDD, PTSD, Cannabis use disorder mild, Alcohol use disorder moderate in full sustained remission Med. Dx: Hep C eradicated hypercholesterolemia, HTN, COPD - Initial Tx Plan for Active Psych & Medical Conditions Treatment Plan: Inpatient psychiatric care with safety checks every 15 minutes Reduce bedtime Depakote dose to 500 mg Change Effexor XR to 150 mg twice daily Will continue trazodone 150 mg at bedtime for the time being We'll continue Wellbutrin SR 100 mg daily for the time being Reduce lithium to 450 mg twice daily because the lithium blood level was 1.2 - Factors that would help patient function - in a less restrictive setting. Factors: The patient will be discharged once he has 2 consecutive days without thoughts of suicide.
--- NOTE | 2018-02-09 10:59 | History & Physical ---
General Information and HPI MD Statement: I have seen and personally examined JUSTIN STARR and documented this H&P. The patient is a 57 year old M who presented with a patient stated chief complaint of suicidal ideations and worsening depression.. Source of Information: patient, old records, psychologist Exam Limitations: unable to give history History of Present Illness: 57-year-old male presents to the ER complaining of depression and suicidal ideations. Patient states he has been battling this for 4 years at least worse in suicidal ideations and plans to hurt himself with his taking his medications as ordered has had of stress and smoked marijuana the day before the visit patient is admitted for evaluation and treatment. Allergies/Medications Allergies: Coded Allergies: NO KNOWN ALLERGIES (05/15/15) Home Med list Atorvastatin Calcium 10 MG TABLET 1 TAB PO QPM CHOLESTEROL (Reported) Bupropion HCl (Wellbutrin Sr) 100 MG TABLET.ER 100 MG PO 0800 anti-depressant augmentation Divalproex Sodium 500 MG TABLET.DR 500 MG PO 0800 stabilize moods Divalproex Sodium 500 MG TABLET.DR 1,000 MG PO 2000 stabilize moods [place] Carbonate ([place]field Carbonate ER) 300 MG TABLET.ER 2 TAB PO QPM MENTAL HEALTH (Reported) [place] Carbonate ([place] Carbonate ER) 450 MG TABLET.ER 1 TAB PO DAILY MENTAL HEALTH (Reported) Mirtazapine 7.5 MG TABLET 1 TAB PO QPM SLEEP HYGIENE (Reported) Multivitamin (Multiple Vitamins) 1 EACH TABLET 1 TAB PO DAILY VITAMIN SUPPORT (Reported) Olanzapine 10 MG TABLET 1 TAB PO QPM SLEEP (Reported) Olanzapine 2.5 MG TABLET 2.5 MG PO 0800,1300,1700 racing thoughts Propranolol HCl 20 MG TABLET 1 TAB PO BID BLOOD PRESSURE (Reported) Trazodone HCl 50 MG TABLET 1 TAB PO QPM SLLEP (Reported) Venlafaxine HCl (Effexor XR) 150 MG CAP.ER.24H 300 MG PO 1700 anti-depressant Compliance With Home Meds: GOOD Past History Travel History Traveled to [place] past 21 day No Medical History Neurological: NONE EENT: NONE Cardiovascular: hypertension, hyperlipidemia Respiratory: COPD Gastrointestinal: GERD Hepatic: hepatitis C (completed Harvoni treatment), (RESOLVED WITH MED) Renal: NONE Musculoskeletal: NONE Psychiatric: alcohol dependence, anxiety, depression, insomnia, substance abuse (cocaine until 2-3 years ago), SOBER (FROM ETOH) 2.5 YRS USES MARIJUANA AT PRESENT Endocrine: NONE Blood Disorders: NONE Cancer(s): NONE 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 Home Who Do You Live With? self Primary Language: Arabic Living Will? unknown Functional Ability ADLs Independent: dressing, eating, toileting, bathing. Ambulation: independent IADLs Independent: shopping, housework, finances, food prep, telephone, transportation , medication admin. Review of Systems Review of Systems Constitutional: Reports: see HPI. Exam & Diagnostic Data Last 24 Hrs of Vital Signs/I&O Vital Signs Date Time Temp Pulse Resp B/P B/P Pulse O2 O2 Flow FiO2 Mean Ox Delivery Rate 02/09 0741 96.1 62 132/74 02/08 1948 97.0 62 146/79 02/08 1650 70 136/71 02/08 1603 96.8 57 131/84 Intake & Output 02/09 1600 02/09 0800 02/09 0000 Intake Total Output Total Balance Patient 191 lb Weight Physical Exam General Appearance Alert, Oriented X3, Cooperative, No Acute Distress Skin No Rashes, No Breakdown HEENT PERRLA, EOMI Neck Supple, No JVD, No thryomegaly, +2 Carotid Pulse wo Bruit Lymphatic Axillary nl, Cervical nl Cardiovascular Regular Rate, No Murmurs Lungs decreased breath sounds, Abdomen Soft, No Tenderness, No Hepatospenomegaly Neurological Exam Findings: Normal Gait, Normal Speech, Strength at 5/5 X4 Ext, Normal Tone, Sensation Intact, Cranial Nerves 3-12 NL, Reflexes 2+ Cranial Nerves II through XII: Intact Extremities No Cyanosis, No Edema Vascular Normal Pulses Last 24 Hrs of Labs/Karel: Laboratory Tests 02/07/18 2334: Urine Opiates Screen < 100, Methadone Screen 46, Barbiturate Screen < 60, Ur Phencyclidine Scrn < 6.00, Amphetamines Screen 184, U Benzodiazepines Scrn < 85, Urine Cocaine Screen < 50, Urine Cannabis Screen > 80.00 H, Urine Color YEL, Urine Clarity CLEAR, Urine pH 6.5, Ur Specific [place] 1.020, Urine Protein NEG, Urine Ketones NEG, Urine Nitrite NEG, Urine Bilirubin NEG, Urine Urobilinogen 0.2, Ur Leukocyte Esterase NEG, Ur Microscopic EXAM NOT REQUIRED, Urine Hemoglobin NEG, Urine Glucose NEG 02/07/18 2100: Anion Gap 11, Estimated GFR > 60, BUN/Creatinine Ratio 18.2, Glucose 102 H, Hemoglobin A1c 5.3, Calcium 10.0, Total Bilirubin 0.4, AST 25, ALT 44, Alkaline Phosphatase 61, Total Protein 7.5, Albumin 4.5, Globulin 3.0, Albumin/Globulin Ratio 1.5, CBC w Diff NO MAN DIFF REQ, RBC 4.61 L, MCV 94.4 H, MCH 31.1 H, MCHC 32.9 L, RDW 14.1, MPV 8.1, Gran % 53.3, Lymphocytes % 36.0, Monocytes % 8.1, Eosinophils % 2.0, Basophils % 0.6, Absolute Granulocytes 5.4, Absolute Lymphocytes 3.6 H, Absolute Monocytes 0.8 H, Absolute Eosinophils 0.2, Absolute Basophils 0.1, Valproic Acid 46.0 L, [place] 1.2, Serum Alcohol < 10.0 Assessment/Plan As Ranked By This Provider Problem List: 1. Depression with suicidal ideation 2. Suicidal ideations 3. Major depressive disorder Qualifiers Major depression recurrence: recurrent Active/Remission status: currently active Major depression episode severity: severe Psychotic features: without psychotic features Qualified Code: F33.2 - Major depressive disorder, recurrent severe without psychotic features Miscellaneous Miscellaneous Documentation Attending Case Discussed With: Paul QUINTERO,Jose Primary Care Physician: Daniel Hern[facility] Patient sees these Specialists Psychiatry Level of Patient Care: [facility] Consults Needed: Consulting Specialty: Psychiatry Consulting Physician: Dr. Alvarez Reason for Consult: worsening depression suicidal ideations
--- NOTE | 2018-02-09 11:47 | SOCIAL WORKER PROG NOTE PSYCH ---
Social Work Progress Note Progress Note Met with Mike, he reported that things had been going well over this past year, but then he started getting depressed due to feeling like the things he wanted to accomplish haven't been done. The biggest stressor and pressure to accomplish is housing. He feels alot of stress due to his Sister wanting him out of her house. He said he has lived there for about 2- 2 1/2 years. He said he gets along with everyone there and he doesn't know why she is pressuring him to leave. He hasn't been employed in 3- 3 1/2 years. 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 He said he would like to work again. He feels isolated at his Sister's house. He doesn't have a car and her home is not within walking distance to stores. Her and her family work during the day. He is connected to and has been sober for at least 3 years. He recently has smoked some marijuana, but states that it's not a regular thing. He completed a CAN Assessment a week or two ago at [facility], but he hasn' t heard from them about a [facility]. He has recently had some suicidal thoughts because he feels tired of life and nothing changing. He has 2 brothers that have completed suicide. Today he reports that his mood is up and down. Denies active SI, but has some passive SI like he wishes he didn't wake up. He is currently in tx with [facility] and with his therapist Jo-Ann Carrillo. He sees Jo-Ann for group and individual weekly. I asked about having his Sister in for a family meeting. He is ambivalent. He did sign a release for her. Talked about looking into [facility] in [place]. I gave him the application and encouraged him to fill it out. He seemed interested.
[2018-02-09 12:09] VITALS: BP 129/81
[2018-02-09 15:34] VITALS: BP 132/78
[2018-02-09 20:04] VITALS: BP 123/85
[2018-02-10 07:37] VITALS: BP 134/74
--- NOTE | 2018-02-10 08:39 | CP SOUTH PROGRESS NOTE PSYCH ---
Psych (Inpt) Progress Note Progress Note Mental Status Examination The patient was lying in bed but awakened. He was alert and oriented to time place and person. He reported that he is feeling tired but he is not feeling overmedicated. He reported that he slept reasonably all right last night. He was calm and cooperative and friendly. He showed normal psychomotor activity and normal speech. There was no pressure and there was no slurring of words. He showed a constricted range of affect and reports that his mood is unchanged ( i.e. still very depressed as well as experiencing anxiety). The patient did not show any abnormal or bizarre behaviors. He continues to have ongoing thoughts of suicide. He denied thinking of violence or homicide. Denied hallucinations, Denied feeling paranoid, there were no delusions during the interview He was coherent, there was no thought disorder Minor difficulties with attention and concentration No gross deficits in short-term memory Assessment: Mike Pringle is a 57-year-old single White male with significant history of depression presents with the increasing depression and thoughts of suicide. The patient may be facing homelessness as his sister may have asked him to leave the house DSM 5 Diagnosis(es): Major depressive disorder recurrent severe (MDD, PTSD, Cannabis use disorder mild, Alcohol use disorder moderate in full sustained remission Med. Dx: Hep C eradicated hypercholesterolemia, HTN, COPD Treatment Plan Update: Continue Depakote 500 mg BID Continue Effexor-XR 150 mg twice daily Will continue trazodone 150 mg at bedtime for the time being continue Wellbutrin SR 100 mg daily for the time being Continue lithium 450 mg twice daily Estimate of intellectual functioning: Average Assets/Strengths Patient Identified Assets/Strengths: The patient appears to be resilient, resourceful, and likable Impression/Plan Impression and Plan: 57-year-old with significant history of depression presents with the increasing depression and thoughts of suicide. The patient may be facing homelessness as his sister may have asked him to leave the house - Include all active medical diagnosis that require tx DSM 5 Diagnosis(es): Major depressive disorder recurrent severe (MDD, PTSD, Cannabis use disorder mild, Alcohol use disorder moderate in full sustained remission Med. Dx: Hep C eradicated hypercholesterolemia, HTN, COPD - Initial Tx Plan for Active Psych & Medical Conditions Treatment Plan: Inpatient psychiatric care with safety checks every 15 minutes Reduce bedtime Depakote dose to 500 mg Change Effexor XR to 150 mg twice daily Will continue trazodone 150 mg at bedtime for the time being We'll continue Wellbutrin SR 100 mg daily for the time being Reduce lithium to 450 mg twice daily because the lithium blood level was 1.2
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
[2018-02-10 12:11] VITALS: BP 136/87
[2018-02-10 15:44] VITALS: BP 133/82
[2018-02-10 19:51] VITALS: BP 143/90
[2018-02-11 07:36] VITALS: BP 135/79
[2018-02-11 11:55] VITALS: BP 136/84
--- NOTE | 2018-02-11 13:54 | CP SOUTH PROGRESS NOTE PSYCH ---
Psych (Inpt) Progress Note Progress Note Vital Signs Date Time Temp Pulse B/P B/P Pulse O2 O2 Flow FiO2 Mean Ox Delivery Rate 02/11 1155 76 136/84 02/11 0736 97.3 68 135/79 02/10 1951 97.5 72 143/90 02/10 1544 71 133/82 Mental Status Examination The patient was was alert and oriented to time place and person. He reported that he is feeling down. He reported that he slept reasonably well. He was calm and cooperative and friendly. He showed normal psychomotor activity and normal speech. There was no pressure and there was no slurring of words. He showed a constricted range of affect and reports that his mood is unchanged ( i.e. still depressed). Less anxious. The patient did not show any abnormal or bizarre behaviors. He continues to have on-off thoughts of suicide. He denied thinking of violence or homicide. Denied hallucinations, Denied feeling paranoid, there were no delusions during the interview. He was coherent, there was no thought disorder. He had minor difficulties with attention and concentration No gross deficits in short-term memory Assessment: Mike Pringle is a 57-year-old single White male with significant history of depression presents with the increasing depression and thoughts of suicide. The patient may be facing homelessness as his sister may have asked him to leave the house. Slow improvement/less anxiety DSM 5 Diagnosis(es): Major depressive disorder recurrent severe (MDD) PTSD, Cannabis use disorder mild, Alcohol use disorder moderate in full sustained remission Med. Dx: Hep C eradicated hypercholesterolemia, HTN, COPD Treatment Plan Update: Reduce Depakote to 500 mg AM and 250 mg at bedtime Continue Effexor-XR 150 mg twice daily trazodone 150 mg at bedtime for the time being continue Wellbutrin SR 100 mg daily for the time being Continue lithium 450 mg twice daily Continue lithium
[2018-02-11 15:50] VITALS: BP 129/75
[2018-02-11 19:43] VITALS: BP 150/79
[2018-02-12 07:28] VITALS: BP 127/80
--- NOTE | 2018-02-12 07:48 | CP SOUTH PROGRESS NOTE PSYCH ---
Psych (Inpt) Progress Note Progress Note Vital Signs Date Time Temp Pulse Resp B/P B/P Pulse O2 O2 Flow FiO2 02/12 1222 73 121/78 02/12 0728 97.5 78 127/80 02/11 1943 96.4 70 150/79 02/11 1550 80 129/75 Mental Status Examination The patient reported that he slept "like a baby" last night. He continues to have on-off thoughts of suicide. He denied thinking of violence or homicide. He was alert & oriented to time, place, and person. He reported that he is feeling slightly better, he was calm and cooperative and friendly. He showed normal psychomotor activity and normal speech. There was no pressure and there was no slurring of words. He showed a constricted range of affect and reports that his mood is unchanged (i.e. still depressed). He reported that he was feeling less anxious. The patient did not show any abnormal or bizarre behaviors. Denied hallucinations, denied feeling paranoid, there were no delusions during the interview. He was coherent, there was no thought disorder. He had minor difficulties with attention and concentration. No gross deficits in short-term memory Assessment: Mike Pringle is a 57-year-old single White male with significant history of depression presents with the increasing depression and thoughts of suicide. The patient may be facing homelessness as his sister may have asked him to leave the house. Slow improvement/less anxiety Diagnoses: Major depressive disorder recurrent severe (MDD) PTSD, Cannabis use disorder mild, Alcohol use disorder moderate in full sustained remission Hep C eradicated hypercholesterolemia, HTN, COPD Treatment Plan Update: check lithium level, basic metabolic panel, TSH, kidney function and Vit D levels Continue Depakote 500 mg AM and 250 mg at bedtime Continue Effexor-XR 150 mg twice daily trazodone 150 mg at bedtime for the time being continue Wellbutrin SR 100 mg daily for the time being Continue lithium 450 mg twice daily Continue Olanzapine 15 mg at bedtime Lorazepam 1.5 MG AT BEDTIME NEED.. 02/09 1315 AC Lorazepam 1 MG Q6P PRN 02/08 0900 AC 02/11
[2018-02-12 12:22] VITALS: BP 121/78
--- NOTE | 2018-02-12 13:44 | SOCIAL WORKER PROG NOTE PSYCH ---
Social Work Progress Note Progress Note Mike stated he wasn't having a good day. Reported that he woke up this morning with negative thoughts. Continues to say he is having on and off SI. Slept well. He has not had communication with his Sister since being here and said he doesn't want to right now. He doesn't feel he can be open about how he' s feeling infront of her. I told him at some point she will need to be involved. He has been reading a book on overcoming depression and anxiety. Doesn't find everything in the book to be helpful. Appears more tremoulous today. He stated he was calming down due to feeling agitated about some things his peers were doing on the unit. An example was kicking ice under the cabinet vs. picking it up. This agitated him so he said something about it. He said he doesn't understand why he cares about that, but doesn't care about his own life. Filled out the application for [facility]. I faxed the application over for him.
--- NOTE | 2018-02-12 15:43 | SOCIAL WORKER PROG NOTE PSYCH ---
Social Work Progress Note Progress Note The services requested require additional review. You will be contacted regarding the status of this request if further information is needed. An authorization decision will be made within the required timeframes and details of that decision may be found under the member's authorization history. Member Name Member ID Member Subscriber Name Subscriber ID JUSTIN STARR [id number] 1960 JUSTIN STARR [id number] Pended Authorization # Client Authorization # Type of Request [id number] CONCURRENT Date of Admission/ Start of Services Requested From Submission Date 02/08/2018 02/12/2018 02/12/2018 Level of Service Type of Service Level of Care Type of Care INPATIENT/HLOC Mental Health Inpatient [facility] - Inpatient Hospital Reason Code P76 Provider Name & Address Provider ID Provider Alternate ID NPI # for Authorization KATI GAY [id number] [address] [place] [id number]
[2018-02-12 16:26] VITALS: BP 137/77
[2018-02-12 19:59] VITALS: BP 146/95
[2018-02-13 06:24] LABS: LITHIUM 0.7 mmol/L (0.6-1.2)
[2018-02-13 07:51] VITALS: BP 126/85
--- NOTE | 2018-02-13 09:03 | CP SOUTH PROGRESS NOTE PSYCH ---
Psych (Inpt) Progress Note Progress Note Laboratory Tests Sodium (137 - 145 mmol/L) 142 Potassium (3.5 - 5.1 mmol/L) 4.4 Chloride (98 - 107 mmol/L) 107 Carbon Dioxide (22 - 30 mmol/L) 24 Anion Gap (5 - 16) 11 BUN (9 - 20 mg/dL) 12 Creatinine (0.7 - 1.2 mg/dL) 0.9 Estimated GFR (>60 ml/min) > 60 BUN/Creatinine Ratio (7 - 25 %) 13.3 25-OH Vitamin D Total (30 - 100 ng/ml) 23.3 L TSH (0.270 - 4.200 uIU/mL) 5.200 H Portales (0.6 - 1.2 mmol/L) 0.7 Vital Signs Date Time Temp Pulse B/P B/P Pulse O2 FiO2 02/13 1230 70 139/98 02/13 0751 96.4 69 126/85 02/12 1959 96.6 88 146/95 02/12 1626 83 137/77 Mental Status Examination: Mike continues to have on-off thoughts of suicide. He denied thinking of violence or homicide. He was alert & oriented to time, place, and person. He was calm and cooperative and friendly. He showed fine tremors normal speech. There was no pressure and there was no slurring of words. He reported that his mood is unchanged/depressed. He was feeling less anxious. Mike did not show any abnormal or bizarre behaviors. Denied hallucinations, denied feeling paranoid, there were no delusions during the interview. He was coherent, there was no thought disorder. He had minor difficulties with attention and concentration. The patient reported that he continues to sleep well. Assessment: Mike Pringle is a 57-year-old single White male with significant history of depression presents with the increasing depression and thoughts of suicide. The patient may be facing homelessness as his sister may have asked him to leave the house. Slow improvement/less anxiety Diagnoses: Major depressive disorder recurrent severe (MDD) PTSD, Cannabis use disorder mild, Alcohol use disorder moderate in full sustained remission Hep C eradicated hypercholesterolemia, HTN, COPD Treatment Plan Update: lithium level: 0.7 mmol/L TSH: mild elevation: Reduce Port[place] dose again Normal kidney function Low Vit D levels- Add Vitamin D Reduce Depakote to 500 mg AM -D/C bedtime dose (still having tremors and also it is my opinion that patient may not need to continue to be on this since he is on Zyprexa 15 mg and Portales) Continue Effexor-XR 150 mg twice daily trazodone 150 mg at bedtime for the time being continue Wellbutrin SR 100 mg daily for the time being Reduce [place]ales to 300 mg twice daily Continue Olanzapine 15 mg at bedtime Reduce Lorazepam PRN to 1 mg Q8 hours PRN anxiety or insomnia
[2018-02-13 12:30] VITALS: BP 139/98
--- NOTE | 2018-02-13 15:54 | SOCIAL WORKER PROG NOTE PSYCH ---
Social Work Progress Note Progress Note Called Andrea at [facility] and left a voicemail to discuss the referral. Met with Mike who was having a difficult day again. Reports that he opened his eyes this morning and was in a bad mood. Reports he slept well and did not experience any nightmares that would contribute to his mood. Asked if his mood changed throughout the day? 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 He is having alot of negative self talk saying things like "I don't want to be here anymore", "I regret coming here, I wish I would have just ended things." We talked alot about working on reframing negative thoughts. He struggled to come up with a postive affirmation. I told him I may get him something to copy and keep on him. I asked again if we could have his sister in for a meeting? He refuses and says he doesn't want her involved and he can't go back there anyway so he doesn't see the point. He said he does hope to get to a point in his life where he can once again have a dog. He talked about having to put his 13 year old dog down recently and that was devasting for him. He said he would have given his right arm to keep that dog. Talked about how this loss could have stirred up previous losses like losing his Brothers. He is a huge animal lover and finds comfort with animals. He has a 13 year old cat at his Sister's house. He really wants to see the cat one more time before he has to move somewhere else. Talked about a referral to [facility] being a possible support for him. He is open to changing his PCP since he doesn't like the person he has been seeing. He signed a release for [facility]. Spoke with Andrea at [facility]. Gave him a little background about Mike. He asked for clinical paperwork to be faxed over. He will review and see if he is appropriate for their program.
[2018-02-13 16:13] VITALS: BP 143/90
[2018-02-13 19:36] VITALS: BP 138/80
[2018-02-14 08:10] VITALS: BP 135/80
--- NOTE | 2018-02-14 09:03 | CP SOUTH PROGRESS NOTE PSYCH ---
Psych (Inpt) Progress Note Progress Note The treatment team discussed the patient's progress, treatment plan, and aftercare plans. The treatment team included: CYBER SECURITY ARCHITECT, nursing staff, therapy staff , and psychiatrist. Vital Signs Date Time Temp Pulse B/P B/P O2 FiO2 02/14 1142 73 140/79 02/14 0810 96.9 72 135/80 02/13 1936 97.5 71 138/80 02/13 1613 76 143/90 Mental Status Examination: Mike reported severe pain in the left thumb. He had a bandage on, he said it was placed by nursing last night. Pt. continues to have on-off thoughts of suicide. He denied thinking of violence or homicide. He was alert & oriented to time, place, and person. He was calm and cooperative and friendly. He showed fine tremors normal speech. There was no pressure and there was no slurring of words. He reported that his mood is unchanged/depressed. He was feeling less anxious. Mike did not show any abnormal or bizarre behaviors. Mike denied hallucinations, denied feeling paranoid, there were no delusions during the interview. He was coherent, there was no thought disorder. He had minor difficulties with attention and concentration. The patient reported that he continues to sleep well. Assessment: Mike Pringle is a 57-year-old Single White male with significant history of depression presents with the increasing depression and thoughts of suicide. The patient may be facing homelessness as his sister may have asked him to leave the house. Slow improvement/less anxiety Diagnoses: Major depressive disorder recurrent severe (MDD) PTSD, Cannabis use disorder mild, Alcohol use disorder moderate in full sustained remission Hep C eradicated hypercholesterolemia, HTN, COPD Treatment Plan Update: Add Percocet 2 TAB Q6P PRN Depakote 500 mg AM Continue Effexor-XR 150 mg twice daily trazodone 150 mg at bedtime for the time being continue Wellbutrin SR 100 mg daily for the time being Continue [place] 300 mg twice daily Continue Olanzapine 15 mg at bedtime Reduce Lorazepam PRN to 1 mg Q8 hours PRN anxiety or insomnia Continue Olanzapine 15 mg at bedtime Reduce Lorazepam PRN to 1 mg Q8 hours PRN anxiety or insomnia Major depressive disorder recurrent severe (MDD) PTSD, Cannabis use disorder mild, Alcohol use disorder moderate in full sustained remission Hep C eradicated hypercholesterolemia, HTN, COPD Treatment Plan Update: lithium level: 0.7 mmol/L TSH: mild elevation: Reduce [place] dose again Normal kidney function Low Vit D levels- Add Vitamin D Reduce Depakote to 500 mg AM -D/C bedtime dose (still having tremors and also it is my opinion that patient may not need to continue to be on this since he is on Zyprexa 15 mg and [place]) Continue Effexor-XR 150 mg twice daily trazodone 150 mg at bedtime for the time being continue Wellbutrin SR 100 mg daily for the time being Reduce [place] to 300 mg twice daily Continue Olanzapine 15 mg at bedtime Reduce Lorazepam PRN to 1 mg Q8 hours PRN anxiety or insomnia
--- NOTE | 2018-02-14 10:20 | SOCIAL WORKER PROG NOTE PSYCH ---
Social Work Progress Note Progress Note Mike was sitting in the kitchen reading. He is now on to a new book about addiction and having hope. He finished the other book he was reading. Asked how his day was going? He said "not too good." He reported alot of pain with his left thumb. This thumb was in a saw accident years ago and he has had surgery on it, but he still have problems with it. He said it it wasn't for the pain in his thumb this morning he might be feeling a little better. We talked with OT about helping Mike out with some positive affirmations that he might be able to hold onto througout the day, since he was struggling to come up with his own. Henny (OT) encouraged him to come to the Self-Esteem group this afternoon and they would work on that. Talked with Mike about my follow up with the admission coordinator from [facility] I let him know that he may want to do a phone screening with him if they think he is appropriate. I also let him know that they definetely would want to know that he is stable to be there. Mike said he realized this and that he is looking forward to an opportunity to try and get his life together. He said he is tired of being alone at his Sister's house with nothing to do. 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 He misses doing that. Called Andrea at [facility] and left a message to f/u on the referral.
--- NOTE | 2018-02-14 10:58 | SOCIAL WORKER PROG NOTE PSYCH ---
Social Work Progress Note Progress Note The services requested require additional review. You will be contacted regarding the status of this request if further information is needed. An authorization decision will be made within the required timeframes and details of that decision may be found under the member's authorization history. Member Name Member ID Member Subscriber Name Subscriber ID JUSTIN STARR [id number] JUSTIN STARR [id number] Pended Authorization # Client Authorization # Type of Request [id number] CONCURRENT Date of Admission/ Start of Services Requested From Submission Date 02/08/2018 02/14/2018 02/14/2018 Level of Service Type of Service Level of Care Type of Care INPATIENT/HLOC [facility] Health [facility]patient [facility]patient [facility] - Inpatient Hospital Reason Code P76 Provider Name & Address Provider ID Provider Alternate ID NPI # for Authorization KATI GAY [id number] [address] [place] [id number]
[2018-02-14 11:42] VITALS: BP 140/79
[2018-02-14 16:06] VITALS: BP 134/89
--- NOTE | 2018-02-14 18:14 | SOCIAL WORKER PROG NOTE PSYCH ---
Social Work Progress Note Progress Note Completed [facility] referral. Need a PCP appointment with [facility]. Need to Fax referral [facility].
[2018-02-14 19:24] VITALS: BP 143/97
[2018-02-15 07:44] VITALS: BP 128/85
[2018-02-15 12:15] VITALS: BP 135/74
--- NOTE | 2018-02-15 13:11 | CP SOUTH PROGRESS NOTE PSYCH ---
Psych (Inpt) Progress Note Progress Note The treatment team discussed the patient's progress, treatment plan, and aftercare plans. The treatment team included: LCSWs, RNs, therapy staff, and psychiatrist. Vital Signs Date Temp Pulse B/P 02/14 73 140/79 02/14 96.9 72 135/80 Mental Status Examination: Mike reported that Percocet helped a little but complained that he is still in severe pain in the left thumb. He was alert & oriented to time, place, and person. He was calm and cooperative and friendly. Pt. continues to have on-off thoughts of suicide. He denied thinking of violence or homicide. He showed fine tremors, normal speech. There was no pressure and there was no slurring of words. He reported that his mood is unchanged/depressed. He was feeling less anxious. Mike did not show any abnormal or bizarre behaviors. Mike denied hallucinations, denied feeling paranoid, there were no delusions during the interview. He was coherent, there was no thought disorder. He had minor difficulties with attention and concentration. Assessment: Mike Pringle is a 57-year-old Single White Male who was admitted on 02/08/2018 with increasing depression and thoughts of suicide. Slow improvement/less anxiety Diagnoses: Major Depressive disorder recurrent severe (MDD) PTSD, Cannabis use disorder mild, Alcohol use disorder moderate in full sustained remission Hep C eradicated hypercholesterolemia, HTN, COPD Treatment Plan Update: I reviewed all the patient's previous notes by the prescribers since 2013, the patient seems to have been on 5 antidepressants during that period. These included: Effexor, Remeron, Wellbutrin, trazodone, Prozac. I discussed with the patient pharmacological options for medications that have not been used in the past and explored their benefits as well as the potential side effects. We agreed on the following plan: Start Zoloft 50 mg QAM Reduce Effexor-XR to 57 mg QAM and 150 mg daily trazodone 150 mg at bedtime for the time being continue Wellbutrin SR 100 mg daily for the time being Continue [place] 300 mg twice daily Continue Olanzapine 15 mg at bedtime Reduce Lorazepam PRN to 1 mg Q8 hours PRN anxiety or insomnia Percocet 2 TAB Q6P PRN Depakote 500 mg AM
--- NOTE | 2018-02-15 14:30 | SOCIAL WORKER PROG NOTE PSYCH ---
Social Work Progress Note Progress Note Spoke with Andrea (admission coordinator) for [facility]. Andrea wanted to let me know he was not in the office today, but received my voicemail pertaining to Mike. He said the referral was in his die casting supervisor's hands and she was reviewing it. He will do a phone screening tomorrow with Mike at 9am. Mike was active in groups today. Talked about how his thumb is really hurting and he was able to see a surgeon today to talk about what they might do. Mike sounded hopeful that he might have a procedure done to remove the nail while he was here. This hasn't been confirmed with the team. I told him about the phone interview tomorrow morning. He was happy to hear that was set up. He is hoping he will be accepted. Asked if he had been working on positive affirmations? He said he had a paper he was keeping on him to look at. Talked about how he feels silly needing to tell himself he is worth it, he deserves it ect.. He said he never had a problem giving himself praise for work, but he struggles when it's not work related. I told him that his recovery is his work right now. We talked about the positive choices he is making every day and that his spirit wants to work on things and move forward.
[2018-02-15 16:00] VITALS: BP 136/86
[2018-02-15 20:28] VITALS: BP 143/95
[2018-02-16 07:51] VITALS: BP 140/93
--- NOTE | 2018-02-16 08:58 | SOCIAL WORKER PROG NOTE PSYCH ---
See Addendum Social Work Progress Note Progress Note Provided referral to Eliza Batista, of [facility]#[phone]. She understands Mike is homeless. Referral is for assistance with housing, possibly disability. Scheduled physical with [facility] [address] [place] [address] Nimisha Pocola - 02/27/18 at 2:45pm - .
--- NOTE | 2018-02-16 09:48 | SOCIAL WORKER PROG NOTE PSYCH ---
Social Work Progress Note Progress Note The services requested require additional review. You will be contacted regarding the status of this request if further information is needed. An authorization decision will be made within the required timeframes and details of that decision may be found under the member's authorization history. Member Name Member ID Member Subscriber Name Subscriber ID JUSTIN STARR [id number] 1960 JUSTIN STARR [id number] Pended Authorization # Client Authorization # Type of Request [id number] CONCURRENT Date of Admission/ Start of Services Requested From Submission Date 02/08/2018 02/16/2018 02/16/2018 Level of Service Type of Service Level of Care Type of Care INPATIENT/HLOC Mental Health Inpatient Inpatient Hospital - Inpatient Hospital Reason Code P76 Provider Name & Address Provider ID Provider Alternate ID NPI # for Authorization KATI GAY [id number] [address] [place] [id number]
--- NOTE | 2018-02-16 10:32 | SOCIAL WORKER PROG NOTE PSYCH ---
Social Work Progress Note Progress Note Mike stated his morning wasn't very good. Still having alot of pain in his thumb. Reports that the surgeon told him he will do the surgery outpatient when he is discharged. I told him I wasn't sure how that would work out if he is at [facility]. Dr. Miller joined us briefly to discuss that. He told Mike that the priority is for him to go to the program and that he's been dealing with this issue with his son for 40 years. He said he would give Mike the contact info for the surgeon so he can coordinate. Mike looked concerned and stressed about all of this. He also said he really wants to be able to go home to see his cat, because he is afraid he'll never see the cat again due to it's age. He mentioned possibly going home and then catching an Uber to [place]. Denied any anxiety over his phone screening this morning. Slept well. Appetite seems good. Mike connected with Andrea (admission's coordinator) to do the screening. I saw Mike after he completed the screening. He thought it sounded like it went well and that Andrea may have an answer for him on Monday. Ken Whitt from [facility] came down to meet with Mike to discuss what services they offer. I briefly touched base with Ken and Mike and explained what we are working on. Ken suggested Mike also call 211 before leaving to see where he is on the prison list and update them. Left a message with Andrea at [facility].
--- NOTE | 2018-02-16 11:24 | CP SOUTH PROGRESS NOTE PSYCH ---
Psych (Inpt) Progress Note Progress Note The treatment team discussed the patient's progress, treatment plan, and aftercare plans. The treatment team included: LCSWs, RNs, Group/ Activity Therapy staff, and psychiatrist. Vital Signs: Date Time Temp Pulse B/P 02/16 0751 97.9 85 140/93 02/16 2028 97.2 84 143/95 02/15 1600 74 136/86 Mental Status Examination: Mike is focused on the pain in the left thumb. He did, however, do the phone interview with [facility]. He was alert & oriented to time, place, and person. He was cooperative and friendly. He denied thoughts of suicide, and denied thinking of violence or homicide. He showed normal speech. There was no pressure and there was no slurring of words. He reported that his mood is unchanged/depressed. He was feeling less anxious. Mike denied hallucinations, denied feeling paranoid, there were no delusions during the interview. He was coherent, there was no thought disorder. He had minor difficulties with attention and concentration. Assessment: Mike Pringle is a 57-year-old Single White Male who was admitted on 02/08/2018 with increasing depression and thoughts of suicide. Since 02/08/2018, Mike showed minimal and slow improvement. Diagnoses: Major Depressive Disorder, recurrent, severe (MDD) Cannabis use disorder mild, Alcohol use disorder moderate in full sustained remission S/P Hep C (eradicated) hypercholesterolemia, HTN, COPD Treatment Plan Update: Start Zoloft 50 mg QAM Reduce Effexor-XR to 57 mg QAM and 150 mg daily trazodone 150 mg at bedtime for the time being continue Wellbutrin SR 100 mg daily for the time being Continue [place] 300 mg twice daily Continue Olanzapine 15 mg at bedtime Reduce Lorazepam PRN to 1 mg Q8 hours PRN anxiety or insomnia Percocet 2 TAB Q6P PRN Depakote 500 mg AM
[2018-02-16 12:22] VITALS: BP 135/78
[2018-02-16 15:44] VITALS: BP 132/80
[2018-02-16 19:42] VITALS: BP 142/90
[2018-02-17 07:55] VITALS: BP 135/73
--- NOTE | 2018-02-17 11:43 | CP SOUTH PROGRESS NOTE PSYCH ---
Psych (Inpt) Progress Note Progress Note Include the following elements, when applicable: Involvement in the active treatment of the patient with behavioral observations of the patient and the patient's response to the treatment. Review of the ongoing treatment process in the context of the treatment plan. Indication of how multi-disciplinary staff members are carrying out the treatment plan. Plans for future interventions and recommendations for revision of the treatment plan. Liaison with other physicians/providers. Progress Note: Pt notes good sleep. Denies any passive or active SI this morning. Did not some a few days ago. Feeling better overall though still down. Current Medications Sig/Ester Start time Last Medication Dose Route Stop Time Status Admin Acetaminophen 650 MG Q4P PRN 02/08 09 AC 02/14 PO 1449 Al Hydroxide/Mg 30 ML .STK-MED ONE 02/16 165 DC Hydroxide PO 02/16 1700 Al Hydroxide/Mg 30 ML Q4-6 PRN PRN 02/08 09 AC 02/16 Hydroxide PO 1659 Bupropion HCl 100 MG 0802/08 0800 AC 02/17 PO 0756 Divalproex Sodium 500 MG 0802/08 0800 AC 02/17 PO 0756 [place] Carbonate 300 MG 0800,02/13 AC 02/17 PO 0756 Lorazepam 1 MG Q8P PRN 02/13 1330 AC 02/15 PO 1414 Magnesium Hydroxide 30 ML AT BEDTIME NEED.. 02/08 0900 AC PO Nicotine 2 MG Q2 HRS NEEDED PRN 02/08 1215 AC PO Olanzapine 15 MG 02/09 AC 02/16 PO 2002 Oxycodone/ 2 TAB Q6P PRN 02/14 1215 AC 02/16 Acetaminophen PO 1658 Sertraline HCl 50 MG DAILY 02/16 1002 AC 02/17 PO 0756 Trazodone HCl 150 MG QPM 02/08 2100 AC 02/16 PO 2110 Venlafaxine HCl 150 MG 0800 02/17 0800 AC 02/17 PO 0756 Venlafaxine HCl 75 MG 1700 02/16 1700 AC 02/16 PO 1656 Vital Signs Date Time Temp Pulse Resp B/P B/P Pulse O2 O2 Flow FiO2 Mean Ox Delivery Rate 02/17 075 97.8 71 135/73 02/16 1942 98.6 70 142/90 02/16 1544 77 132/80 02/16 1222 77 135/78 MSE General appearance: good hygiene and grooming; Attitude: cooperative; Eye contact: appropriate; Movement: no psychomotor agitation or slowing; Speech: nl fluency, nl rate/rhythm, nl volume, nl prosody; Mood: "alright" Affect: irritable, very flat, appropriate, constricted, non-labile, congruent; Thought process: linear and goal-directed; Thought content: denied SI or HI, no paranoid ideation; Perception: denied hallucinations- auditory, visual, does not appear to be responding to internal stimuli; I/J: limited A/P: Pt with MDD and PTSD with some slight improvement in mood. -Continue current medication regimen -Encourage integration into the milieu
[2018-02-17 12:16] VITALS: BP 143/83
[2018-02-17 15:55] VITALS: BP 140/78
[2018-02-17 20:10] VITALS: BP 142/86
[2018-02-18 07:52] VITALS: BP 134/74
--- NOTE | 2018-02-18 11:25 | CP SOUTH PROGRESS NOTE PSYCH ---
Psych (Inpt) Progress Note Progress Note Include the following elements, when applicable: Involvement in the active treatment of the patient with behavioral observations of the patient and the patient's response to the treatment. Review of the ongoing treatment process in the context of the treatment plan. Indication of how multi-disciplinary staff members are carrying out the treatment plan. Plans for future interventions and recommendations for revision of the treatment plan. Liaison with other physicians/providers. Progress Note: Pt notes pain today around his finger. Encouraged use of PRN pain meds ordered. Notes that slept well overnight. Mood is down 2/2 pain though denies SI or HI. Notes none past two days. Current Medications Sig/Ester Start time Last Medication Dose Route Stop Time Status Admin Acetaminophen 650 MG Q4P PRN 02/08 900 AC 02/14 PO 1449 Al Hydroxide/Mg 30 ML Q4-6 PRN PRN 02/08 900 AC 02/16 Hydroxide PO 1659 Bupropion HCl 100 MG 0802/08 08 AC 02/18 PO 09 Divalproex Sodium 500 MG 02/08 08 AC 02/18 PO 0913 [place] Carbonate 300 MG 08,02/13 AC 02/18 PO 0914 Lorazepam 1 MG Q8P PRN 02/13 1330 AC 02/15 PO 1414 Magnesium Hydroxide 30 ML AT BEDTIME NEED.. 02/08 09 AC PO Nicotine 2 MG Q2 HRS NEEDED PRN 02/08 1215 AC PO Olanzapine 15 MG 02/09 AC 02/17 PO 2019 Oxycodone/ 2 TAB Q6P PRN 02/14 1215 AC 02/18 Acetaminophen PO 0715 Sertraline HCl 50 MG DAILY 02/16 1002 AC 02/18 PO 0913 Trazodone HCl 150 MG QPM 02/08 2100 AC 02/17 PO 2139 Venlafaxine HCl 150 MG 0802/17 0800 AC 02/18 PO 0913 Venlafaxine HCl 75 MG 0 02/16 1700 AC 02/17 PO 1631 Vital Signs Date Time Temp Pulse Resp B/P B/P Pulse O2 O2 Flow FiO2 Mean Ox Delivery Rate 02/18 075 97.2 73 134/74 02/17 2010 96.3 71 142/86 02/17 1555 75 140/78 02/17 1216 70 143/83 MSE General appearance: good hygiene and grooming; Attitude: cooperative; Eye contact: appropriate; Movement: no psychomotor agitation or slowing; Speech: nl fluency, nl rate/rhythm, nl volume, nl prosody; Mood: "alright" Affect: irritable, very flat, appropriate, constricted, non-labile, congruent; Thought process: linear and goal-directed; Thought content: denied SI or HI, no paranoid ideation; Perception: denied hallucinations- auditory, visual, does not appear to be responding to internal stimuli; I/J: limited A/P: Pt with MDD and PTSD with some slight improvement in mood though c/b pain. -Continue current medication regimen, encourage PRN use -Encourage integration into the milieu
[2018-02-18 12:13] VITALS: BP 130/75
[2018-02-18 15:43] VITALS: BP 148/82
[2018-02-18 19:49] VITALS: BP 148/84
--- NOTE | 2018-02-18 20:08 | SOCIAL WORKER PROG NOTE PSYCH ---
Social Work Progress Note Progress Note Pt attended Monday evening group, topic group/psychoeducation. Pt was a positive and interactive participant. Explored the "difference between, myself when drinking and the person I am when I'm not".
[2018-02-19 07:34] VITALS: BP 122/79
--- NOTE | 2018-02-19 09:09 | CP SOUTH PROGRESS NOTE PSYCH ---
Psych (Inpt) Progress Note Progress Note I reviewed Dr. Yobany Wheat MD's notes from and Monday (02/17 and 2017). The treatment team discussed the patient's progress, treatment plan, and aftercare plans. The treatment team included: LCSWs, RNs, Group/ Activity Therapy staff, and psychiatrist. Mental Status Examination: Mike was alert & oriented to time, place, and person. He was cooperative and friendly. He denied thoughts of suicide, and denied thinking of violence or homicide. He showed normal speech. There was no pressure and there was no slurring of words. He reported that his mood is unchanged/depressed. He was feeling less anxious. Mike denied hallucinations, denied feeling paranoid, there were no delusions during the interview. He was coherent, there was no thought disorder. He had minor difficulties with attention and concentration. Assessment: Mike Pringle is a 57-year-old Single White Male who was admitted on 02/08/2018 with increasing depression and thoughts of suicide. Since 02/08/2018, Mike showed minimal and slow improvement. Diagnoses: Major Depressive Disorder, recurrent, severe (MDD) Cannabis use disorder mild, Alcohol use disorder moderate in full sustained remission S/P Hep C (eradicated) hypercholesterolemia, HTN, COPD Treatment Plan Update: Increase Zoloft to 100 mg QAM Reduce Effexor-XR to 75 mg BID trazodone 150 mg at bedtime for the time being continue Wellbutrin SR 100 mg daily for the time being Continue [place] 300 mg twice daily Continue Olanzapine 15 mg at bedtime Reduce Lorazepam PRN to 0.5 mg Q8 hours PRN anxiety or insomnia Depakote 500 mg AM Continue [place] 300 mg twice daily Continue Olanzapine 15 mg at bedtime Reduce Lorazepam PRN to 1 mg Q8 hours PRN anxiety or insomnia Percocet 2 TAB Q6P PRN Depakote 500 mg AM
[2018-02-19 12:08] VITALS: BP 139/79
--- NOTE | 2018-02-19 14:38 | SOCIAL WORKER PROG NOTE PSYCH ---
Social Work Progress Note Progress Note Spoke with Andrea at [facility]. They are asking for updated progress notes and med list to make a final decision on admission. If approved they would like Mike to come tomorrow or Weds. They said they will see how Mike does with his thumb as the first 28 days are supposed to be inpatient and not allowed to go in the community, but they will be more flexible if they see he really needs to have it done. They would need 30 days worth of meds called into [facility] detention care [phone]. He would then be connected to [facility] and see a provider there for medication within 2-3 weeks. Faxed additional clinical to [facility]. Spoke with Mike about the above and told him that we should get the final decision from [facility] by tomorrow. He is disappointed about not getting his thumb worked on before going there. I told him that he should see if they could eventually do it at [facility]. Wants to be able to d/c and go to his sister's to see his cat and pack some clothes. He would like to be able to spend the night there, but if the [facility] is not in agreement he would most likely d/c from here morning and get to his Sister's early to pack and then get an Uber to [place]. He seemed a little more irritable in mood today. Denies suicidality. Appreciative of the help though. Wished him well if I don' t see him tomorrow.
[2018-02-19 15:31] VITALS: BP 135/83
--- NOTE | 2018-02-19 15:49 | SOCIAL WORKER PROG NOTE PSYCH ---
Social Work Progress Note Progress Note The services requested require additional review. You will be contacted regarding the status of this request if further information is needed. An authorization decision will be made within the required timeframes and details of that decision may be found under the member's authorization history. Member Name Member ID Member Subscriber Name Subscriber ID JUSTIN STARR [id number] JUSTIN STARR [id number] Pended Authorization # Client Authorization # Type of Request [id number] CONCURRENT Date of Admission/ Start of Services Requested From Submission Date 02/08/2018 02/19/2018 02/19/2018 Level of Service Type of Service Level of Care Type of Care INPATIENT/HLOC [facility]patient [facility] Reason Code P76 Provider Name & Address Provider ID Provider Alternate ID NPI # for Authorization KATI GAY [id number] [address] [place] [id number]
[2018-02-19 19:45] VITALS: BP 143/74
[2018-02-20 07:48] VITALS: BP 138/92
--- NOTE | 2018-02-20 11:01 | SOCIAL WORKER PROG NOTE PSYCH ---
Social Work Progress Note Progress Note Left a message with Andrea from [facility], as of 2:45pm havent heard back. Met with pt he reports feeling anxious, he was laying down and offered he is trying to avoid some people that are here on the unit as their behaviors are triggering. Pt is aware of discharge planning, he did inquire if we had heard back. Pt states "I think I need a PRN".
[2018-02-20 11:50] VITALS: BP 135/80
--- NOTE | 2018-02-20 14:17 | CP SOUTH PROGRESS NOTE PSYCH ---
See Addendum Psych (Inpt) Progress Note Progress Note The treatment team discussed the patient's progress, treatment plan, and aftercare plans. The treatment team included: LCSWs, RNs, Group/ Activity Therapy staff, and psychiatrist. Vital Signs Date Time Temp Pulse B/P B/P Pulse O2 FiO2 02/20 1150 75 135/80 02/20 0748 96.3 85 138/92 02/19 1945 97.5 73 143/74 Mental Status Examination: Mike remains down, irritable and with constricted affect. he was alert & oriented to time, place, and person. He denied thoughts of suicide, and denied thinking of violence or homicide. He showed normal speech. There was no pressure and there was no slurring of words. He reported that his mood is unchanged/depressed. He was feeling less anxious. Mike denied hallucinations , denied feeling paranoid, there were no delusions during the interview. He was coherent, there was no thought disorder. He had minor difficulties with attention and concentration. Assessment: Mike Pringle is a 57-year-old Single White Male who was admitted to [facility]'s Inpatient Psychiatric Unit on 02/08/2018 with increasing depression and thoughts of suicide. Since then, Mike showed slow improvement (no longer thinking of suicide), however, his mood continues to be down. Diagnoses: Major Depressive Disorder, recurrent, severe (MDD) Cannabis Use disorder mild, Alcohol Use disorder moderate in full sustained remission S/P Hep C (eradicated) hypercholesterolemia, HTN, COPD Treatment Plan Update: Reduce Olanzapine to 10 mg at bedtime Reduce Depakote to 250 mg in AM Add PRN Gabapentin for anxiety/irritability/agitation or racing thoughts/ worrries Continue Zoloft 100 mg QAM Continue Effexor-XR 75 mg BID Continue trazodone 150 mg at bedtime for the time being continue Wellbutrin SR 100 mg daily for the time being Continue Cum[place] 300 mg twice daily Reduce Lorazepam PRN to 0.5 mg Q8 hours PRN anxiety or insomnia
[2018-02-20 15:47] VITALS: BP 136/84
[2018-02-20 19:53] VITALS: BP 140/91
[2018-02-21 07:59] VITALS: BP 139/71
[2018-02-21] MEDS ORDERED: PERCOCET 5-3251 EACH PO (08:56)
[2018-02-21] MEDS ORDERED: WELLBUTRIN SR100 M2 PO (08:56)
--- NOTE | 2018-02-21 09:01 | SOCIAL WORKER PROG NOTE PSYCH ---
Social Work Progress Note Progress Note Spoke with Andrea at [facility]. He will admit Mike tomorrow to give him a chance to go to his Sister's tonight to pack. 30 days worth of meds will need to be called into a local pharmarcy. Mike will need to bring them with him. Informed Mike of the above information. He seemed pleased. Asked how he would be getting to his Sister's house today? He said he would have her pick him up after 3pm. Encouraged him to leave her a message. Later we decided to call [place] to schedule the picker tender helper, so he wouldn't have to wait until late afternoon. Mike was in a good mood today. Left after lunch via [employer].
[2018-02-21] MEDS ORDERED: DIVALPROEX SOD250 M2 PO (09:16)
[2018-02-21] MEDS ORDERED: ZOLOFT100 M1 PO (09:16)
[2018-02-21] MEDS ORDERED: GABAPENTIN300 M2 PO (09:16)
[2018-02-21] MEDS ORDERED: TRAZODONE HCL150 M1 PO (09:16)
[2018-02-21] MEDS ORDERED: VENLAFAXINE HCL75 MG PO (10:14)
[2018-02-21] MEDS ORDERED: OLANZAPINE10 M1 PO (10:14)
[2018-02-21] MEDS ORDERED: LITHIUM CARBON300 M6 PO (10:15)
--- NOTE | 2018-02-21 10:26 | Patient Discharge Instructions ---
Psych Discharge Inst General Discharge Information Reason for Admission: Thoughts of suicide Psy Discharge Primary Diag+ Jorgito Dep DO Summary Tests/Major Procedures Lab BUN 12 mg/dL 02/13/18 0540 BUN/Creatinine Ratio 13.3 % 02/13/18 0540 Creatinine 0.9 mg/dL 02/13/18 0540 Estimated GFR > 60 ml/min 02/13/18 0540 [place] 0.7 mmol/L 02/13/18 0540 Studies Pending at DC: None Patient Instructions Contact Information Your Psychiatrist on [facility] was Jose Miller MD * If you are experiencing an emergency related to this hospitalization, please call [phone] to contact the treating psychiatrist or the psychiatrist-on- call. * To Request a copy of your medical records, please contact the Medical Records Department at [phone]. * To request results of studies pending at the time of discharge, please call [phone]. * Continue your Medications until directed to stop by your Healthcare provider. General Medication Information Please continue to take your new medications and your continued home medications , unless otherwise indicated on your discharge medication list, or unless directed by your MD or LAWN MOWER OPERATOR to stop them. Special Instructions Diet Regular Activity Normal - Tobacco Use Treatment Offered Post DC Medications Offered: Refused Tob Medication Tx Post DC Tobacco Treatment Plan: Refused Tobacco Tx Pgm - EtOH/Drug Use D/O Treatment Offered Post DC Medications Offered: Med Not Indicated for D/O Post DC EtOH/SubAbuse TX Plan: Other SubAbuse/Dual Pgm Metabolic Screening Patient on a neuroleptic Enter below results for Hemoglobin A1C, and lipid panel if obtained during the last 365 days. BMI: 32.400 Blood Pressure: 139/71 Laboratory Results From [facility] (If applicable): Lab Cholesterol 190 MG/DL 08/03/17 0925 Cholesterol/HDL Ratio 4 % 08/03/17 0925 HDL Cholesterol 43 mg/dL 08/03/17 0925 Hemoglobin A1c 5.3 % 02/07/18 2100 LDL Cholesterol, Calc 102 mg/dL 08/03/17 0925 Triglycerides 228 mg/dL H 08/03/17 0925 Advance Directives Does the Patient have Medical Advance Directives Yes/Copy not provided Does Pt have Psychiatric Advance Directives? No/Refused further info Does Patient have a Designated Surrogate Decision Maker: No Information About Psychiatric Advance Directives Provided? Refused Discharge Plan Post Hospital Treatment Plan: [facility]
--- NOTE | 2018-02-21 10:29 | CP SOUTH PROGRESS NOTE PSYCH ---
Psych (Inpt) Progress Note Progress Note The treatment team discussed the patient's progress, treatment plan, and aftercare plans. The treatment team included: LCSWs, RNs, Group/ Activity Therapy staff, and psychiatrist. Vital Signs: Temp: 97.2; Pulse: 65/min.; B/P: 139/71 mmHg Mental Status Examination: Mike was alert & oriented to time, place, and person. He denied thoughts of suicide, and denied thinking of violence or homicide. He showed normal speech. There was no pressure and there was no slurring of words. He reported that his mood is unchanged/depressed. He was feeling less anxious. Mike denied hallucinations, denied feeling paranoid, there were no delusions during the interview. He was coherent, there was no thought disorder. Assessment: Mike Pringle is a 57-year-old Single White Male who was admitted to [facility]'s Inpatient Psychiatric Unit on 02/08/2018 with increasing depression and thoughts of suicide. Since then, Mike showed slow improvement (no longer thinking of suicide), however, his mood continues to be down. Diagnoses: Major Depressive Disorder, recurrent, severe (MDD) Cannabis Use disorder mild, Alcohol Use disorder moderate in full sustained remission S/P Hep C (eradicated) hypercholesterolemia, HTN, COPD Treatment Plan Update: D/C to [facility] Treatment Plan Update:
[2018-02-21 12:17] VITALS: BP 140/89
--- NOTE | 2018-02-21 14:48 | SOCIAL WORKER PROG NOTE PSYCH ---
Social Work Progress Note Faxed Referral(s) Referred To: [facility] Transition of Care Documents sent: Health Summary Faxed to: [facility] Fax #: [phone] Faxed by: Shelley Landin Date faxed: 02/21/18 Time Faxed: [phone]
== END 2018-02-21 14:25 | DRG 754 ==
LOC: ERH 20:15 → CP SOUTH 02-08 08:54 → ERHI 02-08 08:54 → ENTRNSPT 02-08 10:24 → EDTRNSPT 02-08 10:29 → EDTRNSPTSTS 02-08 10:29 → CP SOUTH 02-08 10:41 → CMPTRNSPT 02-08 10:44 → CP SOUTH 02-08 12:51
PROVIDERS: Physician Assistant Medical; Psychiatry & Neurology Psychiatry
DX: F32.9 Major depressive disorder, single episode, unspecified (principal)
CPT/HCPCS: 36415; 80307; 81003; 82436; G0480